=== PATIENT | male | born 1965 | race Caucasian/White ===

== ENCOUNTER 2019-02-12 08:05 | Day surgery (SDC) | payer OTHER ==
--- NOTE | 2019-02-09 09:21 | HP ---
DATE OF SURGERY: 02/12/2019 HISTORY OF PRESENT ILLNESS: The patient is a 53 year-old with some dysphagia, some choking on food upper esophagus. He is interested in upper endoscopy possible dilatation. PAST MEDICAL HISTORY: Hypertension, reflux, ADHD. History of some skin cancer in the past, depression, anxiety. PAST SURGICAL HISTORY: Leg surgery, arm surgery, cholecystectomy in the past. MEDICATIONS: Adderall, Percocet, Aspirin, blood pressure pill. Recently had been on Naprosyn and oxycodone. ALLERGIES: AMOXICILLIN. FAMILY HISTORY: Heart disease, cancer, diabetes. SOCIAL HISTORY: No smoking or alcohol abuse. REVIEW OF SYSTEMS: Twelve systems reviewed per admission assessment. He has hypertension. No chest pain or palpitations other systems negative or noncontributory as above and per preadmission questionnaire. PHYSICAL EXAMINATION: GENERAL: No acute distress. HEENT: Sclerae nonicteric. NECK: No JVD. CHEST: Equal excursion, nonlabored breathing. CVS: Regular rhythm. ABDOMEN: Soft. EXTREMITIES: No significant edema. NEURO: Alert, moving extremities symmetrically. IMPRESSION: Dysphagia. Need EGD possible dilatation. Shown the risk sheet, explained the procedure in detail including but not limited to bleeding or infection, risk of bowel injury or perforation possibly requiring open procedure, risk of missed or nondiagnosis or incomplete exam, possibly if dilatation is accomplished and does improve his swallowing it may need repeated again down the road. He also understands there is a possibility that if dilatation fails to improve his swallowing may need further work up, other studies, upper GI study or other work up. She understands and agrees to the planned procedure and will proceed with EGD with possible biopsy possible dilatation as an outpatient.
[~2019-02-12 08:05] MED LIST: Lactated Ringers 1,000 ML IV ONE; Lactated Ringers 1,000 ML IV SCH
[2019-02-12] MEDS ORDERED: DIPRIVAN 200 MG/20 ML IV ONE (08:06)
[2019-02-12 11:21] VITALS: O2SAT 96
[2019-02-12 11:30] VITALS: BP 148/94; PULSE 63
--- NOTE | 2019-02-13 07:53 | OP ---
SURGERY DATE/TIME: 02/12/2019 1024 PREOPERATIVE DIAGNOSIS: Dysphagia. POSTOPERATIVE DIAGNOSES: 1) Erosive gastritis. 2) Mild duodenitis. 3) Mild distal esophagitis. 4) Distal esophageal spasm. 5) Symptomatic proximal esophageal narrowing and spasm. PROCEDURES: 1) EGD with cold biopsy of the antrum to evaluate for Helicobacter pylori. 2) Cold biopsy of small proximal gastric polyp versus hyperplasia. 3) Cold biopsy distal esophagus to evaluate for distal esophagitis. 4) Distal esophageal balloon dilatation size 19 balloon dilator. 5) Proximal esophageal balloon dilator up to size 20 balloon dilator. SURGEON: Dr. Damien Lynn. ANESTHESIA: MAC. ESTIMATED BLOOD LOSS: Minimal. INDICATIONS: As noted above. Risks and benefits explained in detail and not limited to and consent obtained. DESCRIPTION OF PROCEDURE AND FINDINGS: The patient is taken to the operating room. MAC anesthesia introduced. After official time out and no disagreement with planned procedure, bite block positioned. Video gastroscope easily passed down the esophagus through the oropharynx. It should be noted the proximal esophagus had narrowing and spasm. There was no obvious mass to biopsy. It is where he is having the most symptoms. It was felt this warranted to be dilated. The scope was able to be just passed through this area. The more distal esophagus area of spasm in the distal esophagus right at the gastroesophageal junction where he had some distal esophagitis. There was no evidence of Green's esophagus. No evidence of any masses. It was felt he would benefit from dilating this area as well given the spasm in this area and narrowing. The scope is passed through the patent pylorus to the junction of the second and third portion of the duodenum. Distal duodenum, second and third portion of the duodenum grossly unremarkable. Back in the first portion there was some mild duodenitis. No evidence of any ulcers. Back in the stomach he had some linear erosive gastritis. No signs of anything deep enough to call an ulcer at this point. There were no signs of any large polyps, masses, obstructing lesions or other mucosal lesions. On retroflex of the scope, there was a very small polyp in proximal stomach near the gastroesophageal junction this was removed with cold biopsy forceps. Good hemostasis noted. Whether this was just simple hyperplasia versus fundal gland polyp, good hemostasis noted. The scope is straightened. Gastroesophageal junction noted to be at 40 cm. Z-line was fairly crisp. No signs of Green's. However there was distal mild esophagitis. There was no evidence of any deep erosions. No evidence of any obvious masses. A couple cold biopsies were taken in the area for further evaluation. There is a little bit of spasm of distal esophagus not as tight as the proximal area where he was having the most of his symptoms. The scope was carefully withdrawn up through the esophagus. Again, no signs of any other mucosal lesions just the proximal esophageal narrowing and spasm, distal esophageal spasm. It was felt that both of these areas would benefit from dilation. The scope is passed back down in the stomach and pulled up to the distal esophagus where the balloon catheter had been passed in the stomach. The 20 balloon catheter was then pulled back up to the distal spasm area where it was inflated to size 19 for a couple of minutes and then released. Good hemostasis noted. The scope was then pulled back up and the balloon dilator carefully pulled back up to the proximal esophageal narrowing and spasm and then carefully expanded first to size 18 for 45 seconds, size 19 for 45 seconds, final stage size 20 balloon dilator for 2 minutes. It was then released and balloon catheter withdrawn. The scope much more easily passed through this area that had been dilated down in the stomach. Good hemostasis noted. The scope is slowly and carefully withdrawn. There were no signs of any full thickness issues secondary to dilatation. The scope is withdrawn. The patient tolerated the procedure well. Findings discussed with the family out in the waiting area.
== END 2019-02-12 11:35 | disposition home or self-care (01) ==
LOC: SDC 08:05
PROVIDERS: ATTEND Surgery
DX: K29.70 Gastritis, unspecified, without bleeding (principal); K22.2 Esophageal obstruction; K31.7 Polyp of stomach and duodenum; K29.80 Duodenitis without bleeding; R13.10 Dysphagia, unspecified; K20.9 Esophagitis, unspecified; K22.4 Dyskinesia of esophagus
CPT/HCPCS: 88305; 88312; C1726; J2704

== ENCOUNTER 2020-11-19 05:49 | Day surgery (SDC) | payer OTHER ==
[2020-11-19] MEDS ORDERED: Lactated Ringers 1,000 ML IV SCH (06:30)
[2020-11-19] MEDS ORDERED: DIPRIVAN 200 MG/20 ML IV ONE ×2 (08:05→08:13)
[2020-11-19 09:09] VITALS: O2SAT 99
[2020-11-19 09:19] VITALS: BP 151/93; PULSE 63
--- NOTE | 2020-11-19 13:15 | OP ---
SURGERY DATE/TIME: 11/19/2020 0802 PREOPERATIVE DIAGNOSIS: Unintentional weight loss. POSTOPERATIVE DIAGNOSIS: Normal colon. PROCEDURE: Diagnostic colonoscopy. SURGEON: Toby Cordova M.D. ANESTHESIA: MAC by Wilbert Soto CRNA. ESTIMATED BLOOD LOSS: None. SPECIMENS: None. DESCRIPTION OF PROCEDURE: After informed written consent was obtained, the patient was taken to the endoscopy suite. He was placed in left lateral decubitus position. Anesthesia was titrated to desired level of consciousness. A digital rectal exam showed normal sphincter tone and no internal lesions. The scope was inserted into the rectum and the entire colonic mucosa was traversed. The level of cecum was reached and verified with direct visualization of ileocecal valve. Upon withdrawal careful mucosal inspection revealed prep noted to be fair with some semisolid stool present but mostly clear. No obvious mucosal abnormalities and no lesions were encountered. Prior to withdrawal retroflexion showed no internal lesions. The scope was removed and the patient was transferred to the recovery room in good condition.
== END 2020-11-19 09:25 | disposition home or self-care (01) ==
LOC: SDC 05:49
PROVIDERS: ATTEND Family Medicine
DX: R63.4 Abnormal weight loss (principal)
CPT/HCPCS: J2704

== ENCOUNTER 2023-06-18 12:14 | Emergency (ER) | payer MEDICARE, OTHER ==
--- NOTE | 2023-06-18 12:20 | ERPHSYRPT ---
- History of Present Illness Time Seen by Provider: 06/18/23 12:20 Historian: patient Exam Limitations: no limitations Physician History: 57-year-old male was on his way to the emergency room today in order to be evaluated for right shoulder and elbow pain that he has had since the fall that he sustained on Tuesday when slipping and falling off of a log. In route he began experiencing chest pain and dizziness. He says he has had intermittent chest pain multiple times in the past. Also reports that before he fell on Tuesday that he had some near syncope. He denied any loss of consciousness after the fall. Patient reports having history of hypertension, but is no longer taking meds after his divorce was finalized. He denies smoking tobacco, but does smoke marijuana. He denies any history of coronary artery disease and has never had a cardiac cath. He does take Adderall as needed to help him focus. Any other recreational drug use. Since the fall on Tuesday the elbow and shoulder have become increasingly more painful with the elbow being the worst of the 2. Patient states that in the past he had been told he had a rotator cuff tear as well as a bicep tendon tear in his right shoulder, but he elected not to proceed with surgery. His right elbow has become increasingly more swollen and range of motion has become more difficult. He keeps his arm in a flexed 90 degree position for comfort, but has difficulty extending the arm at this time. Most of his pain is on the medial aspect of the elbow. Timing/Duration: day(s) (4 days of right elbow and shoulder pain s/p fall), sudden (CP started just ELECTROTYPER) Activities at Onset: activity, rest Quality: pressure Location: substernal Chest Pain Radiation: arm Severity of Pain-Max: severe Severity of Pain-Current: severe Modifying Factors: Improves With: nothing Associated Symptoms: palpitations, abdominal pain, shortness of breath Prior Chest Pain/Cardiac Workup: no prior cardiac workup Nitro Today/Relief: 0.4 mg x 1, provided by ED Aspirin Treatment Today: 81 mg x 4, provided by ED Allergies/Adverse Reactions: amoxicillin Allergy (Severe, Verified 06/18/23 12:15) itching, chest pain Home Medications: Dextroamphetamine/Amphetamine [Adderall 10 mg Tablet] 30 mg PO DAILY 02/07/19 [History] Hydrocodone/Acetaminophen [Hydrocodon-Acetaminophn 10-325] 1 each PO UD 11/19/20 [History] Duloxetine HCl 30 mg [Cymbalta 30 MG Capsule] 30 mg PO DAILY 06/18/23 [History] Hx Tetanus, Diphtheria Vaccination/Date Given: Yes Hx Influenza Vaccination/Date Given: No Hx Pneumococcal Vaccination/Date Given: No - Review of Systems Constitutional: No Symptoms Eyes: No Symptoms Ears, Nose, & Throat: No Symptoms Respiratory: Dyspnea on Exertion (WINSLOW) Cardiac: Chest Pain, Palpitations Abdominal/Gastrointestinal: Abdominal Pain (RLQ), No Hematemesis, No Hematochezia, No Melena Genitourinary Symptoms: No Symptoms Musculoskeletal: Fall, Injury, Joint Pain (right shoulder, elbow), Joint Swelling (right elbow) Skin: No Symptoms Neurological: Dizziness, No Focal Weakness, No Seizure, No Sensory Changes, No Speech Changes Psychological: No Symptoms Endocrine: No Symptoms Hematologic/Lymphatic: No Symptoms Immunological/Allergic: No Symptoms All Other Systems: Reviewed and Negative - Past Medical History Pertinent Past Medical History: Yes Neurological History: No Pertinent History ENT History: No Pertinent History Cardiac History: Angina, Hypertension Respiratory History: Sleep Apnea, Other Endocrine Medical History: No Pertinent History Musculoskeletal History: Arthritis, Degenerative Disk Disease GI Medical History: Ulcer, GERD History: No Pertinent History Psycho-Social History: Bipolar, Depression Male Reproductive Disorders: No Pertinent History Other Medical History: sleep apnea - untreated- " I take off the mask". He has inhalers for "esophageal asthma" he has been dilated 3 x and states chokes easily. - Past Surgical History Past Surgical History: Yes Neuro Surgical History: No Pertinent History Cardiac: No Pertinent History Respiratory: No Pertinent History Gastrointestinal: Other, Cholecystectomy Genitourinary: No Pertinent History Musculoskeletal: Other Male Surgical History: No Pertinent History Other Surgical History: right arm and left leg reconstructive surgery after accident. EGD - Social History Smoking Status: Never smoker Exposure to second hand smoke: Yes Drug Use: none Patient Lives Alone: No - Nursing Vital Signs Nursing Vital Signs: Initial Vital Signs Temperature 98.4 F 06/18/23 12:17 Pulse Rate 78 06/18/23 12:17 Respiratory Rate 18 06/18/23 12:17 Blood Pressure 132/92 06/18/23 12:17 O2 Sat by Pulse Oximetry 97 06/18/23 12:17 Pain Scale Pain Intensity 0 - Physical Exam General Appearance: no apparent distress, alert, anxiety Eye Exam: PERRL/EOMI, eyes nml inspection Ears, Nose, Throat Exam: normal ENT inspection Neck Exam: normal inspection, supple, full range of motion Respiratory Exam: normal breath sounds, lungs clear, airway intact, No chest tenderness, No respiratory distress Cardiovascular Exam: regular rate/rhythm, normal heart sounds, capillary refill <2 sec, No edema Gastrointestinal/Abdomen Exam: soft, normal bowel sounds, tenderness (RLQ), guarding, No distention, No rebound Back Exam: normal inspection, normal range of motion Extremity Exam: joint swelling (right elbow), limited range of motion (right shoulder, elbow), tenderness Neurologic Exam: alert, oriented x 3, cooperative, service person II-XII nml as tested, normal mood/affect, nml cerebellar function Skin Exam: normal color, warm, dry, No rash Lymphatic Exam: No adenopathy SpO2 Interpretation: normal O2 Delivery: Room Air - Course Nursing assessment & vital signs reviewed: Yes EKG Interpreted by Me: RATE (72), Sinus Rhythm, NORMAL AXIS, NORMAL INTERVALS, NORMAL QRS, NORMAL ST-T, Other (ventricular premature complex, ND 187) - Radiology Exams Right Elbow X-ray Interpretation: Interpreted by me (coronoid process fracture) Right Shoulder X-ray Interpretation: Interpreted by me (bony bankart fracture) - CT Exams Abdomen/Pelvis CT Interpretation: Negative, Tele-radiologist Report, No appendicitis, Other (hepatomegaly, non obstructing renal stone 2mm) Ordered Tests: Active Orders 24 hr Category Date Time Status Set Off Press Operator STAT Care 06/18/23 12:34 Completed EKG-ER Only STAT Care 06/18/23 12:32 Completed IV Insertion STAT Care 06/18/23 12:32 Completed ABDOMEN AND PELVIS W/0 CONTRAS [CT] Stat Exams 06/18/23 12:35 Completed ELBOW (MINIMUM 3 VIEWS) Stat Exams 06/18/23 12:35 Completed SHOULDER Stat Exams 06/18/23 12:35 Completed CBC W DIFF Stat Lab 06/18/23 12:25 Completed CMP Stat Lab 06/18/23 12:25 Completed PROTIME WITH INR Stat Lab 06/18/23 12:25 Completed PTT Stat Lab 06/18/23 12:25 Completed TROPONIN Q4H Lab 06/18/23 12:25 Completed TROPONIN Q4H Lab 06/18/23 16:00 Completed TSH [TSH, 3RD Generation] Stat Lab 06/18/23 12:25 Completed Urine Triage Profile Stat Lab 06/18/23 12:52 Completed Medication Summary Discontinued Medications Generic Name Dose Route Start Last Admin Trade Name Cal PRN Reason Stop Dose Admin Aspirin 324 mg 06/18/23 12:32 06/18/23 12:36 Aspirin 81 Mg Tab.Chew PO 06/18/23 12:33 324 mg STAT ONE Administration Aspirin Confirm 06/18/23 12:38 Aspirin 81 Mg Tab.Chew Administered 06/18/23 12:39 Dose 324 mg .ROUTE .STdentaZOOM-MED ONE Lab/Rad Data: Laboratory Result Diagrams 06/18/23 12:25 06/18/23 12:25 Laboratory Results 06/18/23 06/18/23 06/18/23 Range/Units 16:00 12:52 12:25 WBC (4.0-10.5) x10^3/uL RBC (4.1-5.6) x10^6/uL Hgb (12.5-18.0) g/dL Hct (42-50) % MCV (78-100) fL MCH (26-32) pg MCHC (32-36) g/dL RDW (11.5-14.0) % Plt Count (150-450) x10^3/uL MPV (7.5-11.0) fL Gran % (36.0-66.0) % Immature Gran % (Auto) (0.00-0.4) % Nucleat RBC Rel Count (0.00-0.1) % Eos # (Auto) (0-0.5) x10^3/uL Immature Gran # (Auto) (0.00-0.03) x10^3u/L Absolute Lymphs (auto) (1.0-4.6) x10^3/uL Absolute Monos (auto) (0.0-1.3) x10^3/uL Absolute Nucleated RBC (0.00-0.01) x10^3u/L Lymphocytes % (24.0-44.0) % Monocytes % (0.0-12.0) % Eosinophils % (0.00-5.0) % Basophils % (0.0-0.4) % Absolute Granulocytes (1.4-6.9) x10^3/uL Basophils # (0-0.4) x10^3/uL PT (9.4-12.5) SECONDS INR (0.8-3.0) APTT (25.1-36.5) SECONDS Sodium (137-145) mmol/L Potassium (3.5-5.1) mmol/L Chloride (98-107) mmol/L Carbon Dioxide (22-30) mmol/L Anion Gap (5-15) MEQ/L BUN (9-20) mg/dL Creatinine (0.66-1.25) mg/dL Estimated GFR ML/MIN Glucose (74-106) mg/dL Calcium (8.4-10.2) mg/dL Total Bilirubin (0.2-1.3) mg/dL AST (17-59) U/L ALT (0-50) U/L Alkaline Phosphatase (38-126) U/L Troponin I < 0.012 (0.000-0.034) ng/mL Serum Total Protein (6.3-8.2) g/dL Albumin (3.5-5.0) g/dL TSH 3rd Generation 0.591 (0.47-4.68) mIU/L Urine Opiates Level NEGATIVE (NEGATIVE) Ur Methadone NEGATIVE (NEGATIVE) Urine Barbiturates NEGATIVE (NEGATIVE) Ur Phencyclidine (PCP) NEGATIVE (NEGATIVE) Urine Amphetamine POSITIVE (NEGATIVE) U Benzodiazepine Level NEGATIVE (NEGATIVE) Urine Cocaine NEGATIVE (NEGATIVE) Urine Marijuana (THC) POSITIVE (NEGATIVE) 06/18/23 06/18/23 06/18/23 Range/Units 12:25 12:25 12:25 WBC (4.0-10.5) x10^3/uL RBC (4.1-5.6) x10^6/uL Hgb (12.5-18.0) g/dL Hct (42-50) % MCV (78-100) fL MCH (26-32) pg MCHC (32-36) g/dL RDW (11.5-14.0) % Plt Count (150-450) x10^3/uL MPV (7.5-11.0) fL Gran % (36.0-66.0) % Immature Gran % (Auto) (0.00-0.4) % Nucleat RBC Rel Count (0.00-0.1) % Eos # (Auto) (0-0.5) x10^3/uL Immature Gran # (Auto) (0.00-0.03) x10^3u/L Absolute Lymphs (auto) (1.0-4.6) x10^3/uL Absolute Monos (auto) (0.0-1.3) x10^3/uL Absolute Nucleated RBC (0.00-0.01) x10^3u/L Lymphocytes % (24.0-44.0) % Monocytes % (0.0-12.0) % Eosinophils % (0.00-5.0) % Basophils % (0.0-0.4) % Absolute Granulocytes (1.4-6.9) x10^3/uL Basophils # (0-0.4) x10^3/uL PT 10.8 (9.4-12.5) SECONDS INR 0.99 (0.8-3.0) APTT 28.0 (25.1-36.5) SECONDS Sodium 139 (137-145) mmol/L Potassium 3.9 (3.5-5.1) mmol/L Chloride 103 (98-107) mmol/L Carbon Dioxide 27 (22-30) mmol/L Anion Gap 13.5 (5-15) MEQ/L BUN 8 L (9-20) mg/dL Creatinine 0.97 (0.66-1.25) mg/dL Estimated GFR > 60.0 ML/MIN Glucose 110 H (74-106) mg/dL Calcium 8.9 (8.4-10.2) mg/dL Total Bilirubin 0.60 (0.2-1.3) mg/dL AST 23 (17-59) U/L ALT 17 (0-50) U/L Alkaline Phosphatase 86 (38-126) U/L Troponin I < 0.012 (0.000-0.034) ng/mL Serum Total Protein 7.1 (6.3-8.2) g/dL Albumin 4.4 (3.5-5.0) g/dL TSH 3rd Generation (0.47-4.68) mIU/L Urine Opiates Level (NEGATIVE) Ur Methadone (NEGATIVE) Urine Barbiturates (NEGATIVE) Ur Phencyclidine (PCP) (NEGATIVE) Urine Amphetamine (NEGATIVE) U Benzodiazepine Level (NEGATIVE) Urine Cocaine (NEGATIVE) Urine Marijuana (THC) (NEGATIVE) 06/18/23 Range/Units 12:25 WBC 6.3 (4.0-10.5) x10^3/uL RBC 4.35 (4.1-5.6) x10^6/uL Hgb 14.3 (12.5-18.0) g/dL Hct 41.1 L (42-50) % MCV 94.5 (78-100) fL MCH 32.9 H (26-32) pg MCHC 34.8 (32-36) g/dL RDW 11.9 (11.5-14.0) % Plt Count 236 (150-450) x10^3/uL MPV 9.5 (7.5-11.0) fL Gran % 49.7 (36.0-66.0) % Immature Gran % (Auto) 0.2 (0.00-0.4) % Nucleat RBC Rel Count 0.0 (0.00-0.1) % Eos # (Auto) 0.15 (0-0.5) x10^3/uL Immature Gran # (Auto) 0.01 (0.00-0.03) x10^3u/L Absolute Lymphs (auto) 2.64 (1.0-4.6) x10^3/uL Absolute Monos (auto) 0.37 (0.0-1.3) x10^3/uL Absolute Nucleated RBC 0.00 (0.00-0.01) x10^3u/L Lymphocytes % 41.6 (24.0-44.0) % Monocytes % 5.8 (0.0-12.0) % Eosinophils % 2.4 (0.00-5.0) % Basophils % 0.3 (0.0-0.4) % Absolute Granulocytes 3.15 (1.4-6.9) x10^3/uL Basophils # 0.02 (0-0.4) x10^3/uL PT (9.4-12.5) SECONDS INR (0.8-3.0) APTT (25.1-36.5) SECONDS Sodium (137-145) mmol/L Potassium (3.5-5.1) mmol/L Chloride (98-107) mmol/L Carbon Dioxide (22-30) mmol/L Anion Gap (5-15) MEQ/L BUN (9-20) mg/dL Creatinine (0.66-1.25) mg/dL Estimated GFR ML/MIN Glucose (74-106) mg/dL Calcium (8.4-10.2) mg/dL Total Bilirubin (0.2-1.3) mg/dL AST (17-59) U/L ALT (0-50) U/L Alkaline Phosphatase (38-126) U/L Troponin I (0.000-0.034) ng/mL Serum Total Protein (6.3-8.2) g/dL Albumin (3.5-5.0) g/dL TSH 3rd Generation (0.47-4.68) mIU/L Urine Opiates Level (NEGATIVE) Ur Methadone (NEGATIVE) Urine Barbiturates (NEGATIVE) Ur Phencyclidine (PCP) (NEGATIVE) Urine Amphetamine (NEGATIVE) U Benzodiazepine Level (NEGATIVE) Urine Cocaine (NEGATIVE) Urine Marijuana (THC) (NEGATIVE) - Progress Progress: improved Air Movement: good Progress Note: Patient's initial EKG and troponin were within normal limits. His repeat troponin over 3 hours after the first was also negative. His chest pain improved during the visit after nitro. Patient was found to have what appeared to be a coronoid process fracture of his right ulna that was nondisplaced. There also appeared to be a possible bony Bankart lesion on the inferior aspect of the glenoid and the right shoulder. Patient was placed in a long-arm posterior splint and advised to follow-up with orthopedics for further evaluation. Strongly encouraged the patient to stop or decrease the amount of Adderall he is using due to his chest pain and near syncope episodes. His blood pressure was labile during his stay so I recommended that he keep a log and follow-up with his PCP to see if any changes are needed. His abdominal CT was largely normal just showing an enlarged liver at 20 mm and a small 2 mm nonobstructing right kidney stone. There was atherosclerotic disease noted on the abdominal CT the patient was advised to focus on improved blood pressure control as well as lipid control. Blood Culture(s) Obtained: No Antibiotics given: No Counseled pt/family regarding: lab results, diagnosis, need for follow-up, rad results Medical Desision Making - Diagnostic Testing Diagnostic test were ordered, analyzed, and reviewed by me: Yes Radiological Interpretation: Interpreted by me - Risk of complications The pt has a mod risk of morbidity or mortality based on: Need for prescription drug management - Departure Departure Disposition: Home Clinical Impression: Fracture of coronoid process of ulna, right, closed, Bankart lesion of right shoulder, Chest pain, Hypertension, Fall, Near syncope Condition: Good Critical Care Time: No Referrals: BAM ARMENDARIZ MD [Primary Care Provider] - Follow up/PCP as directed SOHA BAUER MD [NON-STAFF PHY W/O PRIVILEGES] - Follow Up with PCP/3 days ADRIEN RAMIRES [NON-STAFF PHY W/O PRIVILEGES] - Follow Up with PCP/3 days Instructions: Elbow Fracture, Adult ED
[2023-06-18] MEDS ORDERED: BABY ASPIRIN 81 MG CHEW PO ONE (12:32)
[2023-06-18] MEDS ORDERED: BABY ASPIRIN 81 MG CHEW ONE (12:38)
[2023-06-18 12:39] VITALS: TEMP 98.4
[2023-06-18 12:42] LABS: Absolute Neutrophil Ct (ANC) 3.15 x10^3/uL (1.4-6.9); BASOPHIL % 0.3 % (0.0-0.4); Basophil (Absolute #) 0.02 x10^3/uL (0-0.4); Eosinophil % 2.4 % (0.00-5.0); Eosinophil (Absolute #) 0.15 x10^3/uL (0-0.5); Hematocrit 41.1 % (42-50); Hemoglobin 14.3 g/dL (12.5-18.0); IMMATURE GRAN # 0.01 x10^3u/L (0.00-0.03); IMMATURE GRAN % 0.2 % (0.00-0.4); Lymphocyte (Absolute #) 2.64 x10^3/uL (1.0-4.6); Lymphocytes % 41.6 % (24.0-44.0); Mean Cell Volume 94.5 fL (78-100); Mean Corpuscular Hemoglobin 32.9 pg (26-32); Mean Corpuscular Hgb Concent. 34.8 g/dL (32-36); Mean Platelet Volume 9.5 fL (7.5-11.0); Monocyte (Absolute #) 0.37 x10^3/uL (0.0-1.3); Monocytes % 5.8 % (0.0-12.0); Neutrophil % 49.7 % (36.0-66.0); Platelet Count 236 x10^3/uL (150-450); Red Blood Count 4.35 x10^6/uL (4.1-5.6); Red Cell Distribution Width 11.9 % (11.5-14.0); White Blood Count 6.3 x10^3/uL (4.0-10.5)
[2023-06-18 12:50] LABS: ALBUMIN 4.4 g/dL (3.5-5.0); ALKALINE PHOSPHATASE 86 U/L (38-126); ANION GAP 13.5 MEQ/L (5-15); BLOOD UREA NITROGEN 8 mg/dL (9-20); CHLORIDE 103 mmol/L (98-107); Calcium 8.9 mg/dL (8.4-10.2); Carbon Dioxide 27 mmol/L (22-30); Creatinine 1 0.97 mg/dL (0.66-1.25); EST GLOMERULAR FILTRATION RATE > 60.0 ML/MIN; Glucose 110 mg/dL (74-106); Potassium 3.9 mmol/L (3.5-5.1); SGOT/AST 23 U/L (17-59); SGPT/ALT 17 U/L (0-50); SODIUM 139 mmol/L (137-145); Total Protein 7.1 g/dL (6.3-8.2)
[2023-06-18 12:51] LABS: INR 0.99 (0.8-3.0); PROTIME 10.8 SECONDS (9.4-12.5)
[2023-06-18 13:13] LABS: Amphetamine,Urine POSITIVE (NEGATIVE); Barbiturate,Urine NEGATIVE (NEGATIVE); Benzodiazepine,Urine NEGATIVE (NEGATIVE); Cocaine,Urine NEGATIVE (NEGATIVE); Methadone,Urine NEGATIVE (NEGATIVE); Opiate,Urine NEGATIVE (NEGATIVE); PCP,Urine NEGATIVE (NEGATIVE); THC,Urine POSITIVE (NEGATIVE)
[2023-06-18 13:53] VITALS: O2SAT 98
--- NOTE | 2023-06-18 15:09 | XRAY ---
CLINICAL HISTORY:abd pain COMPARISON:None TECHNIQUE:A contiguous, multislice, nonenhanced CT scan of the abdomen and pelvis was performed in the axial plane with multiplanar reconstructions. FINDINGS: Enlarged liver measuring about 20 cm in craniocaudal axis showing homogeneous attenuation with no obvious focal mass lesion within the limitations of non-contrast study. The gallbladder is surgically removed as evidenced by surgical clips in the gallbladder bed. Pancreas and spleen appear unremarkable. No adrenal mass. Both kidneys appear normal in size, shows normal contour and attenuation. Small calculi in the right kidney, the largest measuring about 2 mm at the upper pole. No ascites. No para-aortic lymphadenopathy. Atherosclerotic calcification of the abdominal aorta and iliac vessels. Imaged bowel structures appear unremarkable. No bowel dilatation. The urinary bladder is partially distended, appear free from intraluminal stones, mass or diverticular outpouching. Normal-sized prostate showing calcific foci within it. Bilateral benign looking nonspecific inguinal lymph nodes were seen. Visualized sections of lower chest show calcific density in the left lingular segment representing calcified granuloma/hamartoma. Irregular pleural thickening in both lung bases. IMPRESSION: 1. Nonobstructing small right renal calculi. 2. Hepatomegaly. 3. Rest of the findings as detailed above. Electronically Signed by: Blair Oneil MD. (06/18/2023 14:08:22 PLANT ATTENDANT)
[2023-06-18 17:30] VITALS: BP 144/83; PULSE 53; RESP 14
--- NOTE | 2023-06-18 20:17 | XRAY ---
Indication: Pain following fall. Comparison: None 3 view right shoulder negative for acute fracture/dislocation. Mild glenohumeral/acromioclavicular degenerative arthropathy. 4 mm heterotopic ossification inferior glenohumeral joint either degenerative versus old injury. Incidental mild degenerative changes throughout visualized spine.
--- NOTE | 2023-06-18 20:17 | XRAY ---
Indication: Pain following fall. Comparison: None 3 view right elbow negative acute fracture/dislocation. Minimal displacement posterior fat pad, possible occult fracture. Tiny spurring medial/lateral epicondyles and olecranon process. 2 tiny heterotopic ossifications adjacent to radial tuberosity either degenerative versus old injury.
== END 2023-06-18 18:01 | disposition home or self-care (01) ==
LOC: ED 12:14
DX: S52.041A Displaced fracture of coronoid process of right ulna, initial encounter for closed fracture (principal); S43.431A Superior glenoid labrum lesion of right shoulder, initial encounter; W19.XXXA Unspecified fall, initial encounter; R07.9 Chest pain, unspecified; I10 Essential (primary) hypertension; R55 Syncope and collapse; Z79.899 Other long term (current) drug therapy
CPT/HCPCS: 36000; 36415; 73030; 73080; 74176; 80053; 80307; 84443; 84484; 85025; 85610; 85730; 93005; 93041; 99284; A9270-GY

== ENCOUNTER 2024-05-12 11:05 | Observation (INO) | payer MEDICARE ==
--- NOTE | 2024-05-12 11:21 | ERPHSYRPT ---
- History of Present Illness Time Seen by Provider: 05/12/24 11:21 Source: patient Exam Limitations: no limitations Physician History: The patient presented with a worsening skin condition, initially diagnosed as poison rpaveen or contact dermatitis, approximately a week and a half prior at [facility]. The condition initially improved, but then deteriorated signi ficantly. The patient reported severe pain and inability to straighten the affected arm, suggesting significant inflammation and possible infection. The patient noted the onset of purulent drainage approximately two days prior to a recent appointment with Dr. Armendariz, around the 15th or 16th of the month. The patient reported some relief after the area was cleaned and some of the purulent material was expressed. The patient has a known allergy to Amoxicillin. Timing/Duration: week(s) (1), worse Quality: painful Severity: severe Location: extremities (right elbow) Possible Causes: poison praveen Modifying Factors: Worsens With: prednisone Associated Symptoms: change in skin texture, edema, No difficulty breathing, No fever Allergies/Adverse Reactions: amoxicillin Allergy (Severe, Verified 05/12/24 11:10) itching, chest pain Home Medications: Dextroamphetamine/Amphetamine [Adderall 10 mg Tablet] 30 mg PO DAILY 02/07/19 [History] Duloxetine HCl 30 mg [Cymbalta 30 MG Capsule] 30 mg PO DAILY 06/18/23 [History] Lisinopril/Hydrochlorothiazide [Lisinopril-Hctz 20-25 mg Tab] 1 tab PO DAILY 05/12/24 [History] Oxycodone / APAP 10/325 mg [Oxycodone-Acetaminophen 10-325] 1 tab PO Q4- 6HPRN PRN 05/12/24 [History] Pantoprazole 40 mg [Protonix 40 mg IV] 40 mg PO BID 05/12/24 [History] Sumatriptan Succinate [Imitrex] 100 mg PO DAILY 05/12/24 [History] Hx Tetanus, Diphtheria Vaccination/Date Given: Yes Hx Influenza Vaccination/Date Given: No Hx Pneumococcal Vaccination/Date Given: No - Review of Systems All Other Systems: Reviewed and Negative - Past Medical History Pertinent Past Medical History: Yes Neurological History: No Pertinent History ENT History: No Pertinent History Cardiac History: Angina, Hypertension Respiratory History: Sleep Apnea, Other Endocrine Medical History: No Pertinent History Musculoskeletal History: Arthritis, Degenerative Disk Disease GI Medical History: Ulcer, GERD History: No Pertinent History Psycho-Social History: Bipolar, Depression Male Reproductive Disorders: No Pertinent History Other Medical History: sleep apnea - untreated- " I take off the mask". He has inhalers for "esophageal asthma" he has been dilated 3 x and states chokes easily. - Past Surgical History Past Surgical History: Yes Neuro Surgical History: No Pertinent History Cardiac: No Pertinent History Respiratory: No Pertinent History Gastrointestinal: Other, Cholecystectomy Genitourinary: No Pertinent History Musculoskeletal: Other Male Surgical History: No Pertinent History Other Surgical History: right arm and left leg reconstructive surgery after accident. EGD - Social History Smoking Status: Never smoker Exposure to second hand smoke: Yes Drug Use: none Patient Lives Alone: No - Nursing Vital Signs Nursing Vital Signs: Initial Vital Signs Temperature 97.3 F 05/12/24 11:10 Pulse Rate 65 05/12/24 11:10 Respiratory Rate 17 05/12/24 11:10 Blood Pressure 183/118 05/12/24 11:10 O2 Sat by Pulse Oximetry 100 05/12/24 11:10 Pain Scale Pain Intensity 10 - Physical Exam General Appearance: mild distress Extremity Exam: other SpO2 Interpretation: normal O2 Delivery: Room Air Comments: Right elbow swollen, erythematous with purulent drainage over the olecranon. Range of motion limited by pain. Ultrasound evaluation shows no pocket of drainable fluid and only large amount of soft tissue edema. - Course Nursing assessment & vital signs reviewed: Yes Ordered Tests: Active Orders 24 hr Category Date Time Status IV Insertion STAT Care 05/12/24 11:31 Active UPPER EXTREMITY W CONTRAST [CT] Stat Exams 05/12/24 11:35 Ordered BLOOD CULTURE Stat Lab 05/12/24 11:54 Received CBC W DIFF Stat Lab 05/12/24 11:46 Results CMP Stat Lab 05/12/24 11:46 Received ESR [Erythrocyte Sedimentation Rate] Stat Lab 05/12/24 11:46 Completed Lactic Acid Stat Lab 05/12/24 11:43 Completed Manual Differential NC Stat Lab 05/12/24 11:46 Results PROCALCITONIN Stat Lab 05/12/24 11:46 Received Pathologist Review Stat Lab 05/12/24 11:46 Results Medication Summary Generic Name Dose Route Start Last Admin Trade Name Freq PRN Reason Stop Dose Admin Sodium Chloride 1,000 mls @ 999 mls/hr 05/12/24 11:32 05/12/24 11:45 Sodium Chloride 0.9% 1000 Ml IV 05/12/24 12:32 999 mls/hr .Q1H1M STA Administration Vancomycin HCl 2 gm in 400 mls @ 133.333 mls/hr 05/12/24 11:32 05/12/24 11:57 Vancomycin 2 Gram/400 Ml Bag IV 05/12/24 14:31 133.333 ml/hr STAT ONE 133.33 mls/hr Administration Discontinued Medications Generic Name Dose Route Start Last Admin Trade Name Freq PRN Reason Stop Dose Admin Ceftriaxone Sodium 2 gm in 100 mls @ 200 mls/hr 05/12/24 11:32 05/12/24 11:51 Rocephin 2 Gm/100 Ml Nacl IV 05/12/24 12:01 200 ml/hr STAT ONE 200 mls/hr Administration Sodium Chloride Confirm 05/12/24 11:36 Sodium Chloride 0.9% 1000 Ml Administered 05/12/24 11:37 Dose 1,000 mls @ ud .ROUTE .STK-MED ONE Ceftriaxone Sodium Confirm 05/12/24 11:47 Rocephin 2 Gm/100 Ml Nacl Administered 05/12/24 11:48 Dose 2 gm in 100 mls @ ud IV .STK-MED ONE Vancomycin HCl Confirm 05/12/24 11:54 Vancomycin 2 Gram/400 Ml Bag Administered 05/12/24 11:55 Dose 2 gm in 400 mls @ ud IV .STK-MED ONE Ketorolac Tromethamine 30 mg 05/12/24 12:01 05/12/24 12:05 Ketorolac Tromethamine 30 Mg/Ml Inj IV 05/12/24 12:02 30 mg STAT ONE Administration Ketorolac Tromethamine Confirm 05/12/24 12:03 Ketorolac Tromethamine 30 Mg/Ml Inj Administered 05/12/24 12:04 Dose 30 mg .ROUTE .STK-MED ONE Morphine Sulfate 2 mg 05/12/24 11:34 05/12/24 11:45 Morphine Sulfate 2 Mg/Ml Inj IV 05/12/24 11:35 2 mg STAT ONE Administration Morphine Sulfate Confirm 05/12/24 11:36 Morphine Sulfate 2 Mg/Ml Inj Administered 05/12/24 11:37 Dose 2 mg .ROUTE .STK-MED ONE Ondansetron HCl 4 mg 05/12/24 11:35 05/12/24 11:45 Ondansetron Hcl 4 Mg/2 Ml Vial IV 05/12/24 11:36 4 mg STAT ONE Administration Ondansetron HCl Confirm 05/12/24 11:35 Ondansetron Hcl 4 Mg/2 Ml Vial Administered 05/12/24 11:36 Dose 4 mg .ROUTE .STK-MED ONE Lab/Rad Data: Laboratory Result Diagrams 05/12/24 11:46 Laboratory Results 05/12/24 05/12/24 05/12/24 Range/Units 11:46 11:46 11:43 WBC 27.8 H* (4.23-9.07) x10^3/uL RBC 4.68 (4.63-6.08) x10^6/uL Hgb 15.1 (13.7-17.5) g/dL Hct 45.1 (40.1-51.0) % MCV 96.4 H (79.0-92.2) fL MCH 32.3 H (25.7-32.2) pg MCHC 33.5 (32.3-36.5) g/dL RDW 13.2 (11.6-14.4) % Plt Count 203 (163-337) x10^3/uL MPV 9.7 (9.4-12.4) fL Smear Path Review Pending ESR 8 (0-15) mm/hr Lactic Acid 1.4 (0.4-2.0) - Progress Progress: unchanged Discussed with Dr.: Other (Rolando) Will see patient in: hospital (observation) Counseled pt/family regarding: lab results, diagnosis, need for follow-up, rad results Medical Desision Making - Discussion of managment Care discussed with:: hospitalist Reviewed:: Test results, Need for additional workup Agreed on:: Treatment plan, place in obs Will see patient: In office - Diagnostic Testing Diagnostic test were ordered, analyzed, and reviewed by me: Yes Radiological Interpretation: Interpreted by me, Reviewed by me, Teleradiologist Report - Risk of complications The pt has a mod risk of morbidity or mortality based on: Need for prescription drug management The pt has a high risk of morbidity or mortality based on: Decision regarding hospitilization or escalation of hosp level of care - Departure Departure Disposition: Observation Clinical Impression: Cellulitis of right elbow, Wound cellulitis, Right elbow pain Condition: Stable Critical Care Time: No Referrals: BAM ARMENDARIZ MD [Primary Care Provider] - Follow up/PCP as directed Instructions: Cellulitis (Skin Infection), Adult ED
[2024-05-12] MEDS ORDERED: Zofran 4 MG/2 ML VIAL ONE (11:35)
[2024-05-12] MEDS ORDERED: MORPHINE SULFATE 2 MG INJ ONE (11:36)
[2024-05-12] MEDS ORDERED: Sodium Chloride 0.9% 1000 ML 1,000 ML ONE (11:36)
[2024-05-12] MEDS: Zofran 4 MG/2 ML VIAL IV ONE (11:45)
[2024-05-12] MEDS: MORPHINE SULFATE 2 MG INJ IV ONE (11:45)
[2024-05-12] MEDS: Sodium Chloride 0.9% 1000 ML 1,000 ML IV STA (11:45)
[2024-05-12] MEDS ORDERED: ROCEPHIN 2 GM/100 ML NACL 2 GM/100 ML IVPB IV ONE (11:47)
[2024-05-12] MEDS: ROCEPHIN 2 GM/100 ML NACL 2 GM/100 ML IVPB IV ONE (11:51)
[2024-05-12] MEDS ORDERED: VANCOMYCIN 2 GRAM/400 ML BAG 2 GM/400 ML PIGGYBACK IV ONE (11:54)
[2024-05-12] MEDS: VANCOMYCIN 2 GRAM/400 ML BAG 2 GM/400 ML PIGGYBACK IV ONE (11:57)
[2024-05-12 11:59] LABS: Hematocrit 45.1 % (40.1-51.0); Hemoglobin 15.1 g/dL (13.7-17.5); Mean Cell Volume 96.4 fL (79.0-92.2); Mean Corpuscular Hemoglobin 32.3 pg (25.7-32.2); Mean Corpuscular Hgb Concent. 33.5 g/dL (32.3-36.5); Mean Platelet Volume 9.7 fL (9.4-12.4); Platelet Count 203 x10^3/uL (163-337); Red Blood Count 4.68 x10^6/uL (4.63-6.08); Red Cell Distribution Width 13.2 % (11.6-14.4)
[2024-05-12 12:02] LABS: White Blood Count 27.8 x10^3/uL (4.23-9.07)
[2024-05-12] MEDS ORDERED: TORAdol 30 mg Injection ONE (12:03)
[2024-05-12] MEDS: TORAdol 30 mg Injection IV ONE (12:05)
[2024-05-12 12:28] LABS: ALBUMIN 4.4 g/dL (3.5-5.0); ANION GAP 12.9 MEQ/L (5-15); BILIRUBIN,TOTAL 0.8 mg/dL (0.2-1.3); Calcium 8.8 mg/dL (8.4-10.2); Creatinine 1 0.97 mg/dL (0.66-1.25); EST GLOMERULAR FILTRATION RATE 90.5 ML/MIN; PROCALCITONIN 0.057 ng/mL (0.030-0.080); Potassium 3.9 mmol/L (3.5-5.1); Total Protein 7.4 g/dL (6.3-8.2)
--- NOTE | 2024-05-12 13:17 | PCM.HP ---
History of Present Illness - Chief Complaint Chief Complaint: cellultis Date: 05/12/24 History of Present Illness: Mr.GOODMAN BUSCH is a 58 year old male with PMHX of HTN, migraines, angina, bipolar, depression, sleep apnea ( non-compliant), GERD, DJD, OA, and ADD. The patient presented to the ER today with a worsening skin condition, initially diagnosed as poison praveen or contact dermatitis, approximately a week and a half prior at [facility]. The condition initially improved, but then deteriorated significantly. The patient reported severe pain and inability to straighten the affected arm, suggesting significant inflammation and possible infection. The patient noted the onset of purulent drainage approximately two days prior to a recent appointment with Dr. Cordova, around the 15th or 16th of the month. The patient reported some relief after the area was cleaned and some of the purulent material was expressed. Culture completed in ER. WBC 27.8. He was started on IV antibiotics and pain meds in the ER- will continue. CT RUE pending. Ortho consulted. he denies CP, SOB, abd. pain , N/V/D. - Review of Systems Constitutional: No Fever, No Chills Eyes: No Symptoms Ears, Nose, & Throat: No Symptoms Respiratory: No Cough, No Short Of Breath Cardiac: No Chest Pain, No Edema, No Syncope Abdominal/Gastrointestinal: No Abdominal Pain, No Nausea, No Vomiting, No Diarrhea Genitourinary Symptoms: No Dysuria Musculoskeletal: No Back Pain, No Neck Pain Skin: Cellulitis, Skin Lesions (BLLE, BUE, Right elbow open wounds with redness and pain, left elbow pain and redness), No Rash Neurological: No Dizziness, No Focal Weakness, No Sensory Changes Psychological: No Symptoms Endocrine: No Symptoms Hematologic/Lymphatic: No Symptoms Immunological/Allergic: No Symptoms Medications & Allergies Home Medications: Home Medication List Dextroamphetamine/Amphetamine [Adderall 10 mg Tablet] 30 mg PO DAILY 02/07/19 [History Confirmed 05/12/24] Duloxetine HCl 30 mg [Cymbalta 30 MG Capsule] 30 mg PO DAILY 06/18/23 [History Confirmed 05/12/24] Oxycodone / APAP 10/325 mg [Oxycodone-Acetaminophen 10-325] 1 tab PO Q4- 6HPRN PRN 05/12/24 [History Confirmed 05/12/24] PANTOPRAZOLE 40 mg Tablet [Protonix 40MG Tablet] 40 mg PO BID 05/12/24 [History Confirmed 05/12/24] Allergies/Adverse Reactions: Allergies Allergy/AdvReac Type Severity Reaction Status Date / Time amoxicillin Allergy Severe itching, Verified 05/12/24 13:05 chest pain - Past Medical History Past Medical History: Yes Neurological History: No Pertinent History ENT History: No Pertinent History Cardiac History: Angina, Hypertension Respiratory History: Sleep Apnea, Other Endocrine Medical History: No Pertinent History Musculoskelatal History: Arthritis, Degenerative Disk Disease GI Medical History: Ulcer, GERD History: No Pertinent History Pyscho-Social History: Bipolar, Depression Male Reproductive Disorders: No Pertinent History Comment: sleep apnea - untreated- " I take off the mask". He has inhalers for "esophageal asthma" he has been dilated 3 x and states chokes easily. - Past Surgical History Past Surgical History: Yes Neuro Surgical History: No Pertinent History Cardiac History: No Pertinent History Respiratory Surgery: No Pertinent History GI Surgical History: Other, Cholecystectomy Genitourinary Surgical Hx: No Pertinent History Musculskeletal Surgical Hx: Other Male Surgical History: No Pertinent History Other Surgical History: right arm and left leg reconstructive surgery after accident. EGD - Social History Smoking Status: Never smoker Exposure to second hand smoke: Yes Alcohol: None Drug Use: none - Social Determinants of Health Will the patient participate in the screening: Declined to provide - Physical Exam Vital Signs: Vital Signs - 24 hr Temp Pulse Resp BP Pulse Ox 05/12/24 12:58 98.6 F 73 16 166/80 97 05/12/24 11:10 97.3 F 65 17 183/118 100 General Appearance: no apparent distress, alert Neurologic Exam: alert, oriented x 3, cooperative, normal mood/affect, nml cerebellar function, nml station & gait, sensation nml, No motor deficits Eye Exam: PERRL/EOMI, eyes nml inspection Ears, Nose, Throat Exam: normal ENT inspection, TMs normal, pharynx normal, moist mucous membranes Neck Exam: normal inspection, non-tender, supple, full range of motion Respiratory Exam: normal breath sounds, lungs clear, No respiratory distress Cardiovascular Exam: regular rate/rhythm, normal heart sounds, normal peripheral pulses Gastrointestinal/Abdomen Exam: soft, normal bowel sounds, No tenderness, No mass Back Exam: normal inspection, normal range of motion, No CVA tenderness, No vertebral tenderness Extremity Exam: normal inspection, normal range of motion, pelvis stable, inflammation, joint swelling (BL elbows R>L), limited range of motion (Right elbow) Skin Exam: normal color, warm, dry, other (Multiple lesions of BLLE and BLLE in various stages of healing from poision praveen. Right elbow open wounds with edema, erythema and purulent draiange, left elbow pain and redness.), No rash Lymphatic Exam: No adenopathy Results - Labs Lab/Micro Results: Lab Results-Last 24 Hours 05/12/24 05/12/24 05/12/24 Range/Units 11:43 11:46 11:46 WBC 27.8 H* (4.23-9.07) x10^3/uL RBC 4.68 (4.63-6.08) x10^6/uL Hgb 15.1 (13.7-17.5) g/dL Hct 45.1 (40.1-51.0) % MCV 96.4 H (79.0-92.2) fL MCH 32.3 H (25.7-32.2) pg MCHC 33.5 (32.3-36.5) g/dL RDW 13.2 (11.6-14.4) % Plt Count 203 (163-337) x10^3/uL MPV 9.7 (9.4-12.4) fL Smear Path Review Pending ESR (0-15) mm/hr Sodium 137 (135-145) mmol/L Potassium 3.9 (3.5-5.1) mmol/L Chloride 98 (98-107) mmol/L Carbon Dioxide 31 H (22-30) mmol/L Anion Gap 12.9 (5-15) MEQ/L BUN 16 (9-20) mg/dL Creatinine 0.97 (0.66-1.25) mg/dL Estimated GFR 90.5 ML/MIN Glucose 98 (74-106) mg/dL Lactic Acid 1.4 (0.4-2.0) Calcium 8.8 (8.4-10.2) mg/dL Total Bilirubin 0.80 (0.2-1.3) mg/dL AST 17 (17-59) U/L ALT 21 (0-50) U/L Alkaline Phosphatase 100 (38-126) U/L Serum Total Protein 7.4 (6.3-8.2) g/dL Albumin 4.4 (3.5-5.0) g/dL Procalcitonin 0.057 (0.030-0.080) ng/mL 05/12/24 Range/Units 11:46 WBC (4.23-9.07) x10^3/uL RBC (4.63-6.08) x10^6/uL Hgb (13.7-17.5) g/dL Hct (40.1-51.0) % MCV (79.0-92.2) fL MCH (25.7-32.2) pg MCHC (32.3-36.5) g/dL RDW (11.6-14.4) % Plt Count (163-337) x10^3/uL MPV (9.4-12.4) fL Smear Path Review ESR 8 (0-15) mm/hr Sodium (135-145) mmol/L Potassium (3.5-5.1) mmol/L Chloride (98-107) mmol/L Carbon Dioxide (22-30) mmol/L Anion Gap (5-15) MEQ/L BUN (9-20) mg/dL Creatinine (0.66-1.25) mg/dL Estimated GFR ML/MIN Glucose (74-106) mg/dL Lactic Acid (0.4-2.0) Calcium (8.4-10.2) mg/dL Total Bilirubin (0.2-1.3) mg/dL AST (17-59) U/L ALT (0-50) U/L Alkaline Phosphatase (38-126) U/L Serum Total Protein (6.3-8.2) g/dL Albumin (3.5-5.0) g/dL Procalcitonin (0.030-0.080) ng/mL - Radiology Impressions Radiology Exams & Impressions: Radiology Procedures Category Date Time Status UPPER EXTREMITY W CONTRAST [CT] Stat Exams 05/12/24 11:35 Taken Assessment/Plan (1) Cellulitis of right elbow Current Visit: Yes Status: Acute Assessment & Plan: - IV antibiotics, probiotocs - Upper extremity CT pending - elevate arm Code(s): L03.113 - CELLULITIS OF RIGHT UPPER LIMB (2) Right elbow pain Current Visit: Yes Status: Acute Assessment & Plan: - CT pending - Narcotic pain control Code(s): M25.521 - PAIN IN RIGHT ELBOW (3) Wound cellulitis Current Visit: Yes Status: Acute Assessment & Plan: - IV antibiotics - Upper extremity CT pending Code(s): L03.90 - CELLULITIS, UNSPECIFIED (4) GERD (gastroesophageal reflux disease) Current Visit: Yes Status: Acute Assessment & Plan: - Continue protonix Code(s): K21.9 - GASTRO-ESOPHAGEAL REFLUX DISEASE WITHOUT ESOPHAGITIS (5) Obesity (BMI 30.0-34.9) Current Visit: Yes Status: Chronic Assessment & Plan: - advised diet and exercise control Code(s): E66.9 - OBESITY, UNSPECIFIED (6) Bipolar depression Current Visit: Yes Status: Chronic Assessment & Plan: - Continue Cymbalta Code(s): F31.9 - BIPOLAR DISORDER, UNSPECIFIED (7) ADD (attention deficit disorder) Current Visit: Yes Status: Chronic Assessment & Plan: - Continue Adderall Code(s): F98.8 - OTH BEHAV/EMOTN DISORD W ONSET USLY OCCUR IN CHLDHD AND ADOL (8) HTN (hypertension) Current Visit: Yes Status: Acute Assessment & Plan: - IVF bolus gave in ER - No known hx - monitor - tele VTE: SCD's PPI: protonix Next of KIN: Miranda Sanchez [phone] D/C plan: 2-3 days Code status: Full Code(s): I10 - ESSENTIAL (PRIMARY) HYPERTENSION
--- NOTE | 2024-05-12 13:44 | XRAY ---
CLINICAL HISTORY: pain COMPARISON: None. TECHNIQUE: Contiguous axial CT images of the upper limb left elbow region were obtained with 100 cc isovue-370 intravenous contrast.100cc of Isovue 370 given. Sagittal and coronal multiplanar reformats were acquired. One of the following dose reduction techniques was utilized for this exam.Automated exposure control, adjustment of the mA and/or kV according to patient size, and use of iterative reconstruction. FINDINGS: Evidence of distal biceps tendon repair noted with radial tuberosity region irregularity and hyperdensities in the bicep brachii distal tendon. Subcutaneous soft tissue edema noted at posterior aspect of elbow articulation and is also involving visualized arm and distally in the proximal forearm. Mild reduction of elbow joint space with moderate marginal osteophytes noted. Mild elbow joint effusion noted. Multiple calcification within the soft tissue around the lateral and medial epicondyles, olecranon representing calcific tendinopathy or enthesopathy. Normal osseous alignment is seen. No definite acute fracture or dislocation is noted. IMPRESSION: 1. Evidence of distal biceps tendon repair. 2. Subcutaneous soft tissue edema noted at posterior aspect of elbow articulation and is also involving visualized arm and distally in the proximal forearm. 3. Moderate osteoarthritic changes noted at elbow articulation. 4. Multiple calcification within the soft tissue around the lateral and medial epicondyles, olecranon representing calcific tendinopathy or enthesopathy. 5. Mild elbow joint effusion noted. 6. MRI elbow joint is suggested for further evaluation if clinically indicated. Electronically Signed by: Blair Oneil MD. (05/12/2024 13:41:15 EDT)
[2024-05-12 13:49] LABS: Eosinophil 1 % (0.00-3.0); Lymphocytes 13 % (24-44); Monocyte 2 % (0.0-12.0); Neutrophils 84 % (1.78-5.38); Platelet Estimate NORMAL (NORMAL); Total Cells Counted 100; Toxic Granulation 1+
[2024-05-12] MEDS: PHARMACY DOSING REQUIRED: VANCOMYCIN IV STA (13:58)
[2024-05-12] MEDS: OXYCODONE-ACETAMINOPHEN 10-325 PO PRN (14:21)
[2024-05-12] MEDS: Acidophilus TABLET PO SCH (14:21)
[2024-05-12] MEDS ORDERED: VANCOMYCIN 1 GRAM/200 ML BAG 1 GM/200 ML PIGGYBACK IV SCH (15:00)
[2024-05-12] MEDS ORDERED: Cleocin Phosphate IV 600 MG/4 ML IV SCH (15:00)
[2024-05-12] MEDS ORDERED: MEDICATION INTERVENTION MC SCH (15:00)
[2024-05-12] MEDS ORDERED: CEFAZOLIN 2 GM/100 ML NaCl IV SCH (15:00)
[2024-05-12] MEDS: CLINDAMYCIN-D5W 600 MG/50 ML*** 600 MG/50 ML BAG IV SCH (15:09)
[2024-05-12] MEDS: Ativan 1 MG PO ONE (21:00)
[2024-05-12] MEDS: BACIGUENT PACKET TP SCH (21:36)
[2024-05-12] MEDS: Protonix 40MG Tablet PO SCH (21:48)
[2024-05-12] MEDS: VANCOMYCIN 1 GRAM/200 ML BAG 1 GM/200 ML PIGGYBACK IV SCH (21:49)
[2024-05-12] MEDS: MELATONIN PO PRN (22:09)
[2024-05-13 06:10] LABS: Hematocrit 40.9 % (40.1-51.0); Hemoglobin 13.8 g/dL (13.7-17.5); Mean Corpuscular Hemoglobin 32.4 pg (25.7-32.2); Mean Corpuscular Hgb Concent. 33.7 g/dL (32.3-36.5); Mean Platelet Volume 9.9 fL (9.4-12.4); Platelet Count 177 x10^3/uL (163-337); Red Blood Count 4.26 x10^6/uL (4.63-6.08); Red Cell Distribution Width 13.2 % (11.6-14.4)
[2024-05-13 06:18] LABS: White Blood Count 29.7 x10^3/uL (4.23-9.07)
[2024-05-13 06:29] LABS: ALBUMIN 3.5 g/dL (3.5-5.0); ANION GAP 9.2 MEQ/L (5-15); BILIRUBIN,TOTAL 0.9 mg/dL (0.2-1.3); Calcium 8.4 mg/dL (8.4-10.2); Creatinine 1 0.85 mg/dL (0.66-1.25); EST GLOMERULAR FILTRATION RATE 100.7 ML/MIN; Potassium 4.4 mmol/L (3.5-5.1); Total Protein 6.2 g/dL (6.3-8.2)
[2024-05-13] MEDS: Cymbalta 30 MG Capsule PO SCH (09:01)
[2024-05-13] MEDS ORDERED: NON-FORMULARY ITEM (Dextroamphetamine/Amphetamine [Adderall 10 Mg Tablet] 10 MG Tablet) PO SCH (10:00)
--- NOTE | 2024-05-13 12:29 | PCM.NOTE ---
Date and Time: 05/13/24 1221 Subjective Assessment: Ortho Progress Note HD 2 S--f/u right arm gaitan and swelling, pt states pain slightly imprved, able to move his elbow better. Pt has been voicing concerns about appointments tomorrow (Tuesday), that he feels he cannot miss, a court date at 11am and an appt with his pain mangement doctor at 2pm O--aw, al, NAD Tmax 99.9 right arm still red and tender, zone of redness slightly expanded, although diminshed tenderness at olec area, and no palpable pocket of free fluid in bursa. WBC slightly higher than yest A/cellulitis left UE, no cultures available for this, slight clinical imporvement P/cont iv abx, reassess in am MD marek Objective Exam Wound Assessment: Skin/Wound Assessment Wound/Incision Assessment Start: 05/12/24 12:58 Text: Status: Active Freq: Q6H Protocol: Document 05/13/24 08:00 [facility] (Rec: 05/13/24 09:39 [facility] [id number]) Wound/Incision Assessment Right Elbow Wound Assessment Shift Assessment Wound Type Cellulitis Wound Stage Non Pressure Wound Drainage Amount Minimal Drainage Description Yellow Drainage Odor None/Absent General Appearance Open to air,Draining Surrounding Tissue Bright Red,Edematous Comment Reddness outside of margins, this nurse outlined new margins. Wound Photo Photo Taken No Objective Data Vital Signs: Vital Signs - 24 hr Temp Pulse Resp BP Pulse Ox 05/13/24 11:50 98.0 F 66 16 148/70 96 05/13/24 07:22 98.6 F 73 16 172/84 97 05/13/24 04:00 99.9 F 73 20 155/73 95 05/13/24 00:00 99.6 F 77 18 123/67 96 05/12/24 19:52 99.2 F 79 19 134/63 94 L 05/12/24 15:33 98.9 F 77 16 148/68 96 05/12/24 13:13 98.6 F 73 16 166/80 97 05/12/24 12:58 98.6 F 73 16 166/80 97 Pain Assessment - Last Documented Pain Intensity 5 Pain Scale Used 0-10 Pain Scale Intake and Output: Intake & Output 05/11/24 05/12/24 05/13/2405/14/24 11:59 11:59 11:59 11:59 Intake Total 1630 Output Total 600 Balance 1030 Weight 107.048 kg 111.8 kg Lab Results: Lab Results-Last 24 Hours 05/12/24 05/12/24 05/13/24 Range/Units 11:46 11:46 05:33 WBC 29.7 H* (4.23-9.07) x10^3/uL RBC 4.26 L (4.63-6.08) x10^6/uL Hgb 13.8 (13.7-17.5) g/dL Hct 40.9 (40.1-51.0) % MCV 96.0 H (79.0-92.2) fL MCH 32.4 H (25.7-32.2) pg MCHC 33.7 (32.3-36.5) g/dL RDW 13.2 (11.6-14.4) % Plt Count 177 (163-337) x10^3/uL MPV 9.9 (9.4-12.4) fL Segmented Neutrophils 84 H (1.78-5.38) % Lymphocytes (Manual) 13 L (24-44) % Monocytes (Manual) 2 (0.0-12.0) % Eosinophils (Manual) 1 (0.00-3.0) % Toxic Granulation 1+ Platelet Estimate NORMAL (NORMAL) RBC Morphology NORMAL Sodium 137 (135-145) mmol/L Potassium 3.9 (3.5-5.1) mmol/L Chloride 98 (98-107) mmol/L Carbon Dioxide 31 H (22-30) mmol/L Anion Gap 12.9 (5-15) MEQ/L BUN 16 (9-20) mg/dL Creatinine 0.97 (0.66-1.25) mg/dL Estimated GFR 90.5 ML/MIN Glucose 98 (74-106) mg/dL Calcium 8.8 (8.4-10.2) mg/dL Total Bilirubin 0.80 (0.2-1.3) mg/dL AST 17 (17-59) U/L ALT 21 (0-50) U/L Alkaline Phosphatase 100 (38-126) U/L Serum Total Protein 7.4 (6.3-8.2) g/dL Albumin 4.4 (3.5-5.0) g/dL Procalcitonin 0.057 (0.030-0.080) ng/mL 05/13/24 Range/Units 05:33 WBC (4.23-9.07) x10^3/uL RBC (4.63-6.08) x10^6/uL Hgb (13.7-17.5) g/dL Hct (40.1-51.0) % MCV (79.0-92.2) fL MCH (25.7-32.2) pg MCHC (32.3-36.5) g/dL RDW (11.6-14.4) % Plt Count (163-337) x10^3/uL MPV (9.4-12.4) fL Segmented Neutrophils (1.78-5.38) % Lymphocytes (Manual) (24-44) % Monocytes (Manual) (0.0-12.0) % Eosinophils (Manual) (0.00-3.0) % Toxic Granulation Platelet Estimate (NORMAL) RBC Morphology Sodium 131 L (135-145) mmol/L Potassium 4.4 (3.5-5.1) mmol/L Chloride 99 (98-107) mmol/L Carbon Dioxide 27 (22-30) mmol/L Anion Gap 9.2 (5-15) MEQ/L BUN 14 (9-20) mg/dL Creatinine 0.85 (0.66-1.25) mg/dL Estimated GFR 100.7 ML/MIN Glucose 125 H (74-106) mg/dL Calcium 8.4 (8.4-10.2) mg/dL Total Bilirubin 0.90 (0.2-1.3) mg/dL AST 15 L (17-59) U/L ALT 18 (0-50) U/L Alkaline Phosphatase 94 (38-126) U/L Serum Total Protein 6.2 L (6.3-8.2) g/dL Albumin 3.5 (3.5-5.0) g/dL Procalcitonin (0.030-0.080) ng/mL Radiology Exams: Radiology Procedures Category Date Time Status MRI UPPER EXT JOINT W/CONTRAST [MRI] Routine Exams 05/14/24 10:51 Ordered UPPER EXTREMITY W CONTRAST [CT] Stat Exams 05/12/24 11:35 Completed
[2024-05-13] MEDS: Compazine 10 MG/2 ML IV PRN (12:52)
--- NOTE | 2024-05-13 13:41 | PCM.NOTE ---
Date and Time: 05/13/24 1335 Subjective Assessment: 05/12/24 Mr.GOODMAN BUSCH is a 58 year old male with PMHX of HTN, migraines, angina, bipolar, depression, sleep apnea ( non-compliant), GERD, DJD, OA, and ADD. The patient presented to the ER today with a worsening skin condition, initially diagnosed as poison praveen or contact dermatitis, approximately a week and a half prior at [facility]. The condition initially improved, but then deteriorated significantly. The patient reported severe pain and inability to straighten the affected arm, suggesting significant inflammation and possible infection. The patient noted the onset of purulent drainage approximately two days prior to a recent appointment with Dr. Cordova, around the or . The patient reported some relief after the area was cleaned and some of the purulent material was expressed. Culture completed in ER. WBC 27.8. He was started on IV antibiotics and pain meds in the ER- will continue. CT RUE pending. Ortho consulted. He denies CP, SOB, abd. pain , N/V/D. 05/13/24 Pt resting in bed. He does reports a H/A, and increased pain of right elbow today. Edema and erythemia increased. Nursing has drawn more lines where redness has spread. Ortho to see pt today. Discussed pt case with Ortho on the phone today as pt states he needs to leave tomorrow for pain management appointment in [place] and a court case. Pt agreeable to stay another night. MRI ordered for tomorrow. Cleocin changed to Levaquin as WBC up now at 29.7. Continue Vancomycin. Right elbow continues to drain purulent drainage. Wound culture and Blood cultures x2 pending. He denies CP, SOB, abd. pain , N/V/D. - Review of Systems Constitutional: No Fever, No Chills Eyes: No Symptoms Ears, Nose, & Throat: No Symptoms Respiratory: No Cough, No Short Of Breath Cardiac: No Chest Pain, No Edema, No Syncope Abdominal/Gastrointestinal: No Abdominal Pain, No Nausea, No Vomiting, No Diarrhea Genitourinary Symptoms: No Dysuria Musculoskeletal: No Back Pain, No Neck Pain Skin: Skin Lesions (Multiple lesions of BLLE and BLLE in various stages of heal ing from poision praveen. Right elbow open wounds with edema, erythema and purulent draiange, left elbow pain and redness.)), No Rash Neurological: No Dizziness, No Focal Weakness, No Sensory Changes Psychological: No Symptoms Endocrine: No Symptoms Hematologic/Lymphatic: No Symptoms Immunological/Allergic: No Symptoms Objective Exam General Appearance: no apparent distress, alert Neurologic Exam: alert, oriented x 3, cooperative, normal mood/affect, nml cerebellar function, sensation nml, No motor deficits Skin Exam: normal color, warm, dry, other (Multiple lesions of BLLE and BLLE in various stages of healing from poision praveen. Right elbow open wounds with edema, erythema and purulent draiange, left elbow pain and redness.) Wound Assessment: Skin/Wound Assessment Wound/Incision Assessment Start: 05/12/24 12:58 Text: Status: Active Freq: Q6H Protocol: Document 05/13/24 08:00 [facility] (Rec: 05/13/24 09:39 [facility] [id number]) Wound/Incision Assessment Right Elbow Wound Assessment Shift Assessment Wound Type Cellulitis Wound Stage Non Pressure Wound Drainage Amount Minimal Drainage Description Yellow Drainage Odor None/Absent General Appearance Open to air,Draining Surrounding Tissue Bright Red,Edematous Comment Reddness outside of margins, this nurse outlined new margins. Wound Photo Photo Taken No Eye Exam: PERRL, EOMI, eyes nml inspection Ears, Nose, Throat Exam: normal ENT inspection, pharynx normal, moist mucous membranes Neck Exam: normal inspection, non-tender, supple, full range of motion Respiratory Exam: normal breath sounds, lungs clear, No respiratory distress Cardiovascular Exam: regular rate/rhythm, normal heart sounds Gastrointestinal/Abdomen Exam: soft, No tenderness, No mass Extremity Exam: normal inspection, normal range of motion Back Exam: normal inspection, normal range of motion, No CVA tenderness, No vertebral tenderness Male Genitalia Exam: deferred Rectal Exam: deferred Objective Data Vital Signs: Vital Signs - 24 hr Temp Pulse Resp BP Pulse Ox 05/13/24 11:50 98.0 F 66 16 148/70 96 05/13/24 07:22 98.6 F 73 16 172/84 97 05/13/24 04:00 99.9 F 73 20 155/73 95 05/13/24 00:00 99.6 F 77 18 123/67 96 05/12/24 19:52 99.2 F 79 19 134/63 94 L 05/12/24 15:33 98.9 F 77 16 148/68 96 Pain Assessment - Last Documented Pain Intensity 5 Pain Scale Used 0-10 Pain Scale Intake and Output: Intake & Output 05/11/24 05/12/24 05/13/24 05/14/24 11:59 11:59 11:59 11:59 Intake Total 1630 Output Total 600 Balance 1030 Weight 107.048 kg 111.8 kg Lab Results: Lab Results-Last 24 Hours 05/12/24 05/13/24 05/13/24 Range/Units 11:46 05:33 05:33 WBC 29.7 H* (4.23-9.07) x10^3/uL RBC 4.26 L (4.63-6.08) x10^6/uL Hgb 13.8 (13.7-17.5) g/dL Hct 40.9 (40.1-51.0) % MCV 96.0 H (79.0-92.2) fL MCH 32.4 H (25.7-32.2) pg MCHC 33.7 (32.3-36.5) g/dL RDW 13.2 (11.6-14.4) % Plt Count 177 (163-337) x10^3/uL MPV 9.9 (9.4-12.4) fL Segmented Neutrophils 84 H (1.78-5.38) % Lymphocytes (Manual) 13 L (24-44) % Monocytes (Manual) 2 (0.0-12.0) % Eosinophils (Manual) 1 (0.00-3.0) % Toxic Granulation 1+ Platelet Estimate NORMAL (NORMAL) RBC Morphology NORMAL Sodium 131 L (135-145) mmol/L Potassium 4.4 (3.5-5.1) mmol/L Chloride 99 (98-107) mmol/L Carbon Dioxide 27 (22-30) mmol/L Anion Gap 9.2 (5-15) MEQ/L BUN 14 (9-20) mg/dL Creatinine 0.85 (0.66-1.25) mg/dL Estimated GFR 100.7 ML/MIN Glucose 125 H (74-106) mg/dL Calcium 8.4 (8.4-10.2) mg/dL Total Bilirubin 0.90 (0.2-1.3) mg/dL AST 15 L (17-59) U/L ALT 18 (0-50) U/L Alkaline Phosphatase 94 (38-126) U/L Serum Total Protein 6.2 L (6.3-8.2) g/dL Albumin 3.5 (3.5-5.0) g/dL Radiology Exams: Radiology Procedures Category Date Time Status MRI UPPER EXT JOINT W/CONTRAST [MRI] Routine Exams 05/14/24 10:51 Ordered PICC LINE PLACEMENT Routine Exams 05/13/24 12:31 Stop Req UPPER EXTREMITY W CONTRAST [CT] Stat Exams 05/12/24 11:35 Completed Assessment/Plan (1) Cellulitis of right elbow Current Visit: Yes Status: Acute Code(s): L03.113 - CELLULITIS OF RIGHT UPPER LIMB (2) Right elbow pain Current Visit: Yes Status: Acute Code(s): M25.521 - PAIN IN RIGHT ELBOW (3) Wound cellulitis Current Visit: Yes Status: Acute Code(s): L03.90 - CELLULITIS, UNSPECIFIED (4) GERD (gastroesophageal reflux disease) Current Visit: Yes Status: Acute Code(s): K21.9 - GASTRO-ESOPHAGEAL REFLUX DISEASE WITHOUT ESOPHAGITIS (5) Obesity (BMI 30.0-34.9) Current Visit: Yes Status: Chronic Code(s): E66.9 - OBESITY, UNSPECIFIED (6) Bipolar depression Current Visit: Yes Status: Chronic Code(s): F31.9 - BIPOLAR DISORDER, UNSPECIFIED (7) ADD (attention deficit disorder) Current Visit: Yes Status: Chronic Code(s): F98.8 - OTH BEHAV/EMOTN DISORD W [facility]ET [facility] AND [facility] (8) HTN (hypertension) Current Visit: Yes Status: Acute Assessment & Plan: (1) Cellulitis of right elbow Current Visit: Yes Status: Acute Assessment & Plan: - IV antibiotics, probiotocs - Upper extremity CT: IMPRESSION: 1. Evidence of distal biceps tendon repair. 2. Subcutaneous soft tissue edema noted at posterior aspect of elbow articulation and is also involving visualized arm and distally in the proximal forearm. 3. Moderate osteoarthritic changes noted at elbow articulation. 4. Multiple calcification within the soft tissue around the lateral and medial epicondyles, olecranon representing calcific tendinopathy or enthesopathy. 5. Mild elbow joint effusion noted. 6. MRI elbow joint is suggested for further evaluation if clinically indicated. - elevate arm 05/13 - Cleocin changed to Levaquin as WBC 29.7 today - Ortho coming iin to see pt today. - MRI ordered for tomorrow Code(s): L03.113 - CELLULITIS OF RIGHT UPPER LIMB (2) Right elbow pain Current Visit: Yes Status: Acute Assessment & Plan: - CT pending - Narcotic pain control Code(s): M25.521 - PAIN IN RIGHT ELBOW (3) Wound cellulitis Current Visit: Yes Status: Acute Assessment & Plan: - IV antibiotics - Upper extremity CT reviewed 05/13 - worsening- ortho notified this morning Code(s): L03.90 - CELLULITIS, UNSPECIFIED (4) GERD (gastroesophageal reflux disease) Current Visit: Yes Status: Acute Assessment & Plan: - Continue protonix Code(s): K21.9 - GASTRO-ESOPHAGEAL REFLUX DISEASE WITHOUT ESOPHAGITIS (5) Obesity (BMI 30.0-34.9) Current Visit: Yes Status: Chronic Assessment & Plan: - advised diet and exercise control Code(s): E66.9 - OBESITY, UNSPECIFIED (6) Bipolar depression Current Visit: Yes Status: Chronic Assessment & Plan: - Continue Cymbalta Code(s): F31.9 - BIPOLAR DISORDER, UNSPECIFIED (7) ADD (attention deficit disorder) Current Visit: Yes Status: Chronic Assessment & Plan: - Continue Adderall Code(s): F98.8 - OTH BEHAV/EMOTN DISORD W ONSET USLY OCCUR IN CHLDHD AND ADOL (8) HTN (hypertension) Current Visit: Yes Status: Acute Assessment & Plan: - IVF bolus gave in ER - No known hx - monitor - tele VTE: SCD's PPI: protonix Next of KIN: Miranda Sanchez [phone] D/C plan: 2-3 days Code status: Full Code(s): I10 - ESSENTIAL (PRIMARY) HYPERTENSION Code(s): I10 - ESSENTIAL (PRIMARY) HYPERTENSION
--- NOTE | 2024-05-13 16:19 | XRAY ---
CLINICAL HISTORY: PICC Line Placement COMPARISON: 10/06/2020. TECHNIQUE: X-ray of the chest in AP portable view. FINDINGS: PICC line is seen extending from the left upper extremity with the distal tip seen reaching the superior vena cava. The cardiac shadow appears enlarged. Mild prominence of perihilar vascular markings probably due to mild pulmonary vascular congestion The interstitial pattern is noted bilaterally in parahilar and bases. Faint tiny nodular shadows are suspected at the left lower zone laterally. No signs of pleural effusion. The thoracic cage, ribs, and bones are normal. IMPRESSION: 1. PICC line is seen extending from the left upper extremity with the distal tip seen reaching the superior vena cava. 2. Apparent cardiomegaly with mild pulmonary vascular congestion. 3. In comparison with the previous study dated 10/06/2020: The interstitial pattern is noted bilaterally in parahilar and bases, almost stable. 4. A tiny hyperdense nodule is suspected at the left lower zone laterally, a stable finding. Electronically Signed by: Blair Oneil MD. (05/13/2024 16:14:32 EDT)
[2024-05-13] MEDS: Sodium Chloride 0.9% 10 ML FLUSH Syringe PICC SCH (22:00)
[2024-05-14 05:16] LABS: Hematocrit 43.8 % (40.1-51.0); Hemoglobin 14.9 g/dL (13.7-17.5); Mean Corpuscular Hemoglobin 32.3 pg (25.7-32.2); Mean Platelet Volume 9.8 fL (9.4-12.4); Platelet Count 188 x10^3/uL (163-337); Red Blood Count 4.61 x10^6/uL (4.63-6.08); Red Cell Distribution Width 12.7 % (11.6-14.4)
--- NOTE | 2024-05-14 05:32 | PCM.NOTE ---
Date and Time: 05/14/24 0528 Subjective Assessment: Mr.GOODMAN BUSCH is a 58 year old male with PMHX of HTN, migraines, angina, bipolar, depression, sleep apnea ( non-compliant), GERD, DJD, OA, and ADD admitted 05/12/24 with cellulitis of the right elbow after experiencing worsening skin condition, initially diagnosed as poison praveen or contact dermatitis, approximately a week and a half prior to presentation at [facility]. The condition initially improved, but then deteriorated significantly. The patient reported severe pain and inability to straighten the affected arm, suggesting significant inflammation and possible infection. The patient noted the onset of purulent drainage approximately two days prior to a recent appointment with Dr. Cordova, around the 15th or 16th of the month. The patient reported some relief after the area was cleaned and some of the purulent material was expressed. Culture completed in ER. WBC 27.8. Initial abx treatment with Cleocin. CT imaging showing Current treatment with vancomycin and levofloxacin (05/13/24). Ortho consulted with plans to continue current regimen of antibiotics with MRI pending. Patient is requesting discharge due to court date and pain management appointment. Objective Exam Wound Assessment: Skin/Wound Assessment Wound/Incision Assessment Start: 05/12/24 12:58 Text: Status: Active Freq: Q6H Protocol: Document 05/14/24 02:00 MM (Rec: 05/14/24 02:07 MM [id number]) Wound/Incision Assessment Right Elbow Wound Assessment Shift Assessment Wound Type Cellulitis Wound Stage Non Pressure Wound Drainage Amount Minimal Drainage Description Yellow Drainage Odor None/Absent General Appearance Open to air,Draining Surrounding Tissue Bright Red,Edematous Comment redness noted outside of margins marked by day shift RN . Wound Photo Photo Taken No Objective Data Vital Signs: Vital Signs - 24 hr Temp Pulse Resp BP Pulse Ox 05/14/24 04:00 99.9 F 73 20 151/70 94 L 05/13/24 20:00 97.8 F 65 18 173/74 93 L 05/13/24 15:55 98.0 F 60 16 131/64 05/13/24 11:50 98.0 F 66 16 148/70 96 05/13/24 07:22 98.6 F 73 16 172/84 97 Pain Assessment - Last Documented Pain Intensity 0 Pain Scale Used 0-10 Pain Scale Intake and Output: Intake & Output 07/19/24 07/20/24 07/21/24 07/22/24 11:59 11:59 11:59 11:59 Intake Total 1630 480 Output Total 600 Balance 1030 480 Weight 107.048 kg 111.8 kg Lab Results: Lab Results-Last 24 Hours 05/13/24 05/13/24 Range/Units 05:33 05:33 WBC 29.7 H* (4.23-9.07) x10^3/uL RBC 4.26 L (4.63-6.08) x10^6/uL Hgb 13.8 (13.7-17.5) g/dL Hct 40.9 (40.1-51.0) % MCV 96.0 H (79.0-92.2) fL MCH 32.4 H (25.7-32.2) pg MCHC 33.7 (32.3-36.5) g/dL RDW 13.2 (11.6-14.4) % Plt Count 177 (163-337) x10^3/uL MPV 9.9 (9.4-12.4) fL Sodium 131 L (135-145) mmol/L Potassium 4.4 (3.5-5.1) mmol/L Chloride 99 (98-107) mmol/L Carbon Dioxide 27 (22-30) mmol/L Anion Gap 9.2 (5-15) MEQ/L BUN 14 (9-20) mg/dL Creatinine 0.85 (0.66-1.25) mg/dL Estimated GFR 100.7 ML/MIN Glucose 125 H (74-106) mg/dL Calcium 8.4 (8.4-10.2) mg/dL Total Bilirubin 0.90 (0.2-1.3) mg/dL AST 15 L (17-59) U/L ALT 18 (0-50) U/L Alkaline Phosphatase 94 (38-126) U/L Serum Total Protein 6.2 L (6.3-8.2) g/dL Albumin 3.5 (3.5-5.0) g/dL Radiology Exams: Radiology Procedures Category Date Time Status CHEST 1 VIEW (PORTABLE) Stat Exams 05/13/24 15:36 Completed MRI UPPER EXT JOINT W/CONTRAST [MRI] Routine Exams 05/14/24 10:51 Ordered UPPER EXTREMITY W CONTRAST [CT] Stat Exams 05/12/24 11:35 Completed Assessment/Plan (1) Cellulitis of right elbow Current Visit: Yes Status: Acute Assessment & Plan: - Upper extremity CT: IMPRESSION: 1. Evidence of distal biceps tendon repair. 2. Subcutaneous soft tissue edema noted at posterior aspect of elbow articulation and is also involving visualized arm and distally in the proximal forearm. 3. Moderate osteoarthritic changes noted at elbow articulation. 4. Multiple calcification within the soft tissue around the lateral and medial epicondyles, olecranon representing calcific tendinopathy or enthesopathy. 5. Mild elbow joint effusion noted. 6. MRI elbow joint is suggested for further evaluation if clinically indicated. - elevate affected limb -Vanc/ levofloxacin -Antimicrobial history -Cleocin (05/12-05/13/24) -Vancomycin 05/12/24 - -Levofloxacin 05/13/24 - - MRI ordered and pending -Ortho consulted with recs to continue current abx regimen as stated above Code(s): L03.113 - CELLULITIS OF RIGHT UPPER LIMB (2) Wound cellulitis Current Visit: Yes Status: Acute Assessment & Plan: - Continue Vanc/ levaquin - Upper extremity CT reviewed -MRI scheduled and pending Code(s): L03.90 - CELLULITIS, UNSPECIFIED (3) HTN (hypertension) Current Visit: Yes Status: Acute Assessment & Plan: - IVF bolus in ER - No known hx - monitor - tele Code(s): I10 - ESSENTIAL (PRIMARY) HYPERTENSION (4) GERD (gastroesophageal reflux disease) Current Visit: Yes Status: Acute Assessment & Plan: - Continue protonix Code(s): K21.9 - GASTRO-ESOPHAGEAL REFLUX DISEASE WITHOUT ESOPHAGITIS (5) Right elbow pain Current Visit: Yes Status: Acute Assessment & Plan: - CT Upper extremity demonstrating Subcutaneous soft tissue edema noted at posterior aspect of elbow articulation and is also involving visualized arm and distally in the proximal. Moderate osteoarthritic changes noted at elbow articulation. Multiple calcif ication within the soft tissue around the lateral and medial epicondyles, olecranon representing calcific tendinopathy or enthesopathy. Mild elbow joint effusion noted. -Narcotic pain control -MRI ordered and pending -Ortho consulted, appreciate recs Code(s): M25.521 - PAIN IN RIGHT ELBOW (6) ADD (attention deficit disorder) Current Visit: Yes Status: Chronic Assessment & Plan: - Continue Adderall Code(s): F98.8 - OTH BEHAV/EMOTN DISORD W ONSET USLY OCCUR IN CHLDHD AND ADOL (7) Bipolar depression Current Visit: Yes Status: Chronic Assessment & Plan: - Continue Cymbalta Code(s): F31.9 - BIPOLAR DISORDER, UNSPECIFIED (8) Obesity (BMI 30.0-34.9) Current Visit: Yes Status: Chronic Assessment & Plan: advised diet and exercise control VTE: SCD's PPI: protonix Next of KIN: Miranda Sanchez [phone] D/C plan: 2-3 days Code status: Full Code(s): E66.9 - OBESITY, UNSPECIFIED
[2024-05-14 05:33] LABS: ALBUMIN 3.8 g/dL (3.5-5.0); ANION GAP 11.7 MEQ/L (5-15); BILIRUBIN,TOTAL 0.7 mg/dL (0.2-1.3); Calcium 8.9 mg/dL (8.4-10.2); Creatinine 1 0.76 mg/dL (0.66-1.25); EST GLOMERULAR FILTRATION RATE 104.2 ML/MIN; Potassium 4.2 mmol/L (3.5-5.1)
[2024-05-14 07:46] VITALS: BP 144/66; PULSE 71; RESP 17; TEMP 97.2; O2SAT 95
[2024-05-14] MEDS: LEVOFLOXACIN 750MG/150ML D5W 750 MG/150 ML BAG IV SCH (08:22)
--- NOTE | 2024-05-14 08:44 | CONS ---
REASON FOR CONSULT: Right arm pain and swelling. HISTORY: This 59-year-old male was admitted this morning for a chief complaint of right arm pain, redness, swelling, progressive symptoms. Problems began April 24 when he developed poison praveen while cutting a tree. States that he had a rash on both upper extremities. He went to emergency room at [facility] a few days later and was placed on oral steroids. He states that also about that time he began to develop small pustules on his bilateral upper extremities and these began to appear gradually on the lower extremities as well. Starting about 3 to 4 days ago he developed increasing redness, swelling, pain in the right elbow region and this became progressive so that he came to the emergency room this morning. He had been treated with oral steroids after his initial emergency room visit at [facility] on approximately April 27. He stayed on the tapering dose of prednisone until his admission. He denies a history of known MRSA, prior skin structure infections, history of gout, history of elbow trouble. He denies fever and chills. He has been noting purulent-appearing drainage from the cutaneous lesions, which appear like pustules. In the emergency room he had an evaluation, which included a CT of the right arm and blood work. He was noted to have WBC count elevated to 27.8 from his blood work. He was started on IV antibiotics and admitted to the hospital with [facility]. REVIEW OF SYSTEMS: Negative for fever, chills, shortness of breath, syncope, chest pain, abdominal pain, nausea, vomiting, diarrhea, dysuria. He does have a history of chronic neck pain and was seen by a pain management clinic. He denies dizziness, weakness, sensory change. HOME MEDICATIONS: Adderall 30 mg p.o. daily; duloxetine 30 mg daily; Percocet 10/325; one tablet every 4 to 6 hours and pantoprazole 40 mg daily. ALLERGIES: AMOXICILLIN. PAST MEDICAL HISTORY: Significant for angina, hypertension, sleep apnea, arthritis, cervical disc disease, GERD syndrome, depression. PAST SURGICAL HISTORY: Significant for cholecystectomy, right arm and leg surgery following an accident. 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 PHYSICAL EXAMINATION: GENERAL: Awake, alert, oriented male in no acute distress. HEENT: Unremarkable. EXTREMITIES: Upper extremity exam: There is swelling and redness of the right upper extremity, primarily in the posterior aspect of the right proximal forearm and elbow. The forearm is swollen circumferentially and he is tender in the posterior aspect of the elbow, spanning an area of about 6 inches in length. He can flex to 90 degrees and extend to-10 degrees. This does produce posterior elbow pain. Pronation and supination are pain-free. Small cutaneous pustule-like lesions are seen on the forearm of both upper extremities with several small similar lesions on his lower extremities. The bursa appears to be slightly swollen but it does not visibly protrude more than the rest of the arm. LABORATORY: WBC count 27.8, hemoglobin 15.1, hematocrit 45.1. Platelets 203. Sodium 137, potassium 3.9, chloride 98, carbon dioxide 31. CT scan, right upper extremity, final impression: 1) Evidence of distal biceps tendon repair. 2) Subcutaneous soft tissue edema posterior aspect of elbow. 3) Moderate osteoarthritic changes noted at elbow articulation. 4) Multiple calcification within soft tissue around the lateral and medial epicondyle. 5) Mild elbow joint effusion. IMPRESSION: Cellulitis right upper extremity with multiple cutaneous pustule-like lesions on bilateral upper and lower extremities. This is consistent with a possible diagnosis of cutaneous Methicillin-resistant Staphylococcus aureus. At this point it is difficult to tell if he has septic bursa or simple cellulitis. He has been started on clindamycin and vancomycin and has only had one dose of each. Because he is afebrile and nontoxic, we will continue IV antibiotics and observation. He has been told that he may indeed require incision and drainage of the bursa. However, we will wait 24 to 48 hours to monitor the impact of the antibiotic therapy. We will continue to follow.
[2024-05-14] MEDS: TROUGH DRUG LEVELS IJ ONE (09:54)
--- NOTE | 2024-05-14 11:09 | PCM.DS ---
Discharge Summary Date of Admission: 05/12/24 12:57 Date of Discharge: 05/14/24 Admitting Physician: ORIN HARRIS MD Consults: Consults on Case 05/12/24 13:29 Consult Ortho ROUTINE Primary Care Provider: BAM CORDOVA NICKOLAS Allergies Allergies amoxicillin Allergy (Severe, Verified 05/12/24 13:05) itching, chest pain Hospital Summary - Hospital Course Hospital Course: Mr.GOODMAN BUSCH is a 58 year old male with PMHX of HTN, migraines, angina, bipolar, depression, sleep apnea ( non-compliant), GERD, DJD, OA, and ADD admitted 05/12/24 with cellulitis of the right elbow after experiencing worsening skin condition, initially diagnosed as poison praveen or contact dermatitis, approximately a week and a half prior to presentation at [facility]. The condition initially improved, but then deteriorated significantly. The patient reported severe pain and inability to straighten the affected arm, suggesting significant inflammation and possible infection. The patient noted the onset of purulent drainage approximately two days prior to a recent appointment with Dr. Cordova, around the or of the month. The patient reported some relief after the area was cleaned and some of the purulent material was expressed. Culture completed in ER. WBC 27.8. Initial abx treatment with Cleocin. CT imaging showing subcutaneous soft tissue edema noted at posterior aspect of elbow articulation and is also involving visualized arm and distally in the proximal forearm with suggestions for MRI. Current treatment with vancomycin and levofloxacin (05/13/24). Ortho consulted with plans to continue current regimen of antibiotics with MRI as OP and close follow up this week. Advised IP treatment with MRI and IV antibiotic -patient adamant on discharging today due to court date and pain management appointment. Antibiotic have been set up OP with Ortho following. Levaquin called to pharmacy. Discharge Note New Diagnosis: cellulitis right elbow New Medications: Vanc/levaquin Follow Up: Ortho this week/pcp Results pending: cultures MRI as OP per Ortho Latest Assessment & Plan (1) Cellulitis of right elbow Current Visit: Yes Status: Acute Assessment & Plan: - Upper extremity CT: IMPRESSION: 1. Evidence of distal biceps tendon repair. 2. Subcutaneous soft tissue edema noted at posterior aspect of elbow articulation and is also involving visualized arm and distally in the proximal forearm. 3. Moderate osteoarthritic changes noted at elbow articulation. 4. Multiple calcification within the soft tissue around the lateral and medial epicondyles, olecranon representing calcific tendinopathy or enthesopathy. 5. Mild elbow joint effusion noted. 6. MRI elbow joint is suggested for further evaluation if clinically indicated. - elevate affected limb -Vanc/ levofloxacin -Antimicrobial history -Cleocin (05/12-05/13/24) -Vancomycin 05/12/24 - continue for 10 days as OP -Levofloxacin 05/13/24 - continue for 10 days as OP - MRI as OP -Ortho consulted with recs to continue current abx regimen as stated above Code(s): L03.113 - CELLULITIS OF RIGHT UPPER LIMB (2) Wound cellulitis Current Visit: Yes Status: Acute Assessment & Plan: - Continue Vanc/ levaquin - Upper extremity CT reviewed -MRI /abx as OP Code(s): L03.90 - CELLULITIS, UNSPECIFIED (3) HTN (hypertension) Current Visit: Yes Status: Acute Assessment & Plan: - IVF bolus in ER - No known hx - monitor - tele Code(s): I10 - ESSENTIAL (PRIMARY) HYPERTENSION (4) GERD (gastroesophageal reflux disease) Current Visit: Yes Status: Acute Assessment & Plan: - Continue protonix Code(s): K21.9 - GASTRO-ESOPHAGEAL REFLUX DISEASE WITHOUT ESOPHAGITIS (5) Right elbow pain Current Visit: Yes Status: Acute Assessment & Plan: - CT Upper extremity demonstrating Subcutaneous soft tissue edema noted at posterior aspect of elbow articulation and is also involving visualized arm and distally in the proximal. Moderate osteoarthritic changes noted at elbow articulation. Multiple calcification within the soft tissue around the lateral and medial epicondyles, olecranon representing calcific tendinopathy or enthesopathy. Mild elbow joint effusion noted. -Narcotic pain control -MRI -abx as stated above Code(s): M25.521 - PAIN IN RIGHT ELBOW (6) ADD (attention deficit disorder) Current Visit: Yes Status: Chronic Assessment & Plan: - Continue Adderall Code(s): F98.8 - OTH BEHAV/EMOTN DISORD W ONSET USLY OCCUR IN CHLDHD AND ADOL (7) Bipolar depression Current Visit: Yes Status: Chronic Assessment & Plan: - Continue Cymbalta Code(s): F31.9 - BIPOLAR DISORDER, UNSPECIFIED (8) Obesity (BMI 30.0-34.9) Current Visit: Yes Status: Chronic Assessment & Plan: advised diet and exercise control I spent 35 minutes [id number] with the patient on the day of discharge performing discharge exam, discussing hospital stay and discharge instructions with patient and caregivers, preparation of discharge records, prescriptions & referral forms and addressing any questions/concerns the patient had as documented above. - Vitals & Intake/Output Vital Signs: Vital Signs Temperature 97.2 F 05/14/24 07:44 Pulse Rate 71 05/14/24 07:44 Respiratory Rate 17 05/14/24 07:44 Blood Pressure 144/66 05/14/24 07:44 O2 Sat by Pulse Oximetry 95 05/14/24 07:44 Intake & Output: Intake & Output 05/11/24 05/12/24 05/13/24 05/14/24 11:59 11:59 11:59 11:59 Intake Total 1630 600 Output Total 600 Balance 1030 600 Weight 107.048 kg 111.8 kg - Lab Result Diagrams: 05/14/24 04:27 05/14/24 04:27 Lab Results-Last 24 Hrs: Lab Results-Last 24 Hours 05/14/24 05/14/24 05/14/24 Range/Units 04:27 04:27 09:32 WBC 26.0 H* (4.23-9.07) x10^3/uL RBC 4.61 L (4.63-6.08) x10^6/uL Hgb 14.9 (13.7-17.5) g/dL Hct 43.8 (40.1-51.0) % MCV 95.0 H (79.0-92.2) fL MCH 32.3 H (25.7-32.2) pg MCHC 34.0 (32.3-36.5) g/dL RDW 12.7 (11.6-14.4) % Plt Count 188 (163-337) x10^3/uL MPV 9.8 (9.4-12.4) fL Sodium 134 L (135-145) mmol/L Potassium 4.2 (3.5-5.1) mmol/L Chloride 99 (98-107) mmol/L Carbon Dioxide 27 (22-30) mmol/L Anion Gap 11.7 (5-15) MEQ/L BUN 16 (9-20) mg/dL Creatinine 0.76 (0.66-1.25) mg/dL Estimated GFR 104.2 ML/MIN Glucose 123 H (74-106) mg/dL Calcium 8.9 (8.4-10.2) mg/dL Total Bilirubin 0.70 (0.2-1.3) mg/dL AST 17 (17-59) U/L ALT 17 (0-50) U/L Alkaline Phosphatase 106 (38-126) U/L Serum Total Protein 7.0 (6.3-8.2) g/dL Albumin 3.8 (3.5-5.0) g/dL Vancomycin Trough 6.76 L (10-20) ug/mL Micro Results-Entire Visit: Microbiology 05/12/24 11:46 Blood Culture - Preliminary Blood 05/12/24 11:54 Blood Culture - Preliminary Blood 05/12/24 18:53 Wound Culture - Preliminary Arm - Right Upper GRAM POSITIVE ID AND SENSITIVITY PENDING - Radiology Exams Ordered Rad Exams-Entire Visit: Radiology Procedures Category Date Time Status CHEST 1 VIEW (PORTABLE) Stat Exams 05/13/24 15:36 Completed MRI UPPER EXT JOINT W/CONTRAST [MRI] Routine Exams 05/14/24 10:51 Ordered UPPER EXTREMITY W CONTRAST [CT] Stat Exams 05/12/24 11:35 Completed Discharge Exam General Appearance: no apparent distress Neurologic Exam: alert, oriented x 3, cooperative Eye Exam: PERRL Ears, Nose, Throat Exam: normal ENT inspection Neck Exam: normal inspection Respiratory Exam: normal breath sounds, lungs clear Cardiovascular Exam: regular rate/rhythm, normal heart sounds Gastrointestinal/Abdomen Exam: soft, normal bowel sounds Male Genitalia Exam: deferred Rectal Exam: deferred Back Exam: normal inspection Extremity Exam: other (right elbow with surrounding erythema/receding marked boarder) Wound Assessment: Skin/Wound Assessment Wound/Incision Assessment Start: 05/12/24 12:58 Text: Status: Active Freq: Q6H Protocol: Document 05/14/24 08:00 [facility] (Rec: 05/14/24 08:02 [facility] [id number]) Wound/Incision Assessment Right Elbow Wound Assessment Shift Assessment Wound Type Cellulitis Wound Stage Non Pressure Wound Drainage Amount Minimal Drainage Description Yellow Drainage Odor None/Absent General Appearance Open to air,Draining Surrounding Tissue Bright Red,Edematous Wound Photo Photo Taken No Final Diagnosis/Problem List - Final Discharge Diagnosis/Problem (1) Cellulitis of right elbow Current Visit: Yes Status: Acute Code(s): L03.113 - CELLULITIS OF RIGHT UPPER LIMB (2) Wound cellulitis Current Visit: Yes Status: Acute Code(s): L03.90 - CELLULITIS, UNSPECIFIED (3) HTN (hypertension) Current Visit: Yes Status: Acute Code(s): I10 - ESSENTIAL (PRIMARY) HYPERTENSION (4) GERD (gastroesophageal reflux disease) Current Visit: Yes Status: Acute Code(s): K21.9 - GASTRO-ESOPHAGEAL REFLUX DISEASE WITHOUT ESOPHAGITIS (5) Right elbow pain Current Visit: Yes Status: Acute Code(s): M25.521 - PAIN IN RIGHT ELBOW (6) ADD (attention deficit disorder) Current Visit: Yes Status: Chronic Code(s): F98.8 - OTH BEHAV/EMOTN DISORD W ONSET USLY OCCUR IN CHLDHD AND ADOL (7) Bipolar depression Current Visit: Yes Status: Chronic Code(s): F31.9 - BIPOLAR DISORDER, UNSPECIFIED (8) Obesity (BMI 30.0-34.9) Current Visit: Yes Status: Chronic Code(s): E66.9 - OBESITY, UNSPECIFIED - Discharge Disposition: Home, Self-Care Condition: Stable Prescriptions: New levoFLOXacin [Levofloxacin] 750 mg PO DAILY 10 Days #10 tablet Vancomycin/Water For Inj (Peg) [Vancomycin 1 Gram/200 ml Bag] 1 gm IV BID iv piggy Continue Dextroamphetamine/Amphetamine [Adderall 10 mg Tablet] 30 mg PO DAILY Duloxetine HCl 30 mg [Cymbalta 30 MG Capsule] 30 mg PO DAILY Oxycodone / APAP 10/325 mg [Oxycodone-Acetaminophen 10-325] 1 tab PO Q4-6HPRN PRN PRN Reason: Pain PANTOPRAZOLE 40 mg Tablet [Protonix 40MG Tablet] 40 mg PO BID Instructions: Cellulitis (skin infection) in adults - Discharge instructions Additional Instructions: YOUR FIRST APT FOR INFUSIONS IS TODAY AT 5PM AT [facility] THESE WILL BE FOR 7 DAYS Follow up with: BAM CORDOVA MD [Primary Care Provider] - 05/21/24 10:45 am HANSEL BYRNE MD [ACTIVE STAFF] - 05/16/24 11:30 am Forms: Discharge Instructions, Work/School Release Form
== END 2024-05-14 11:35 | disposition home or self-care (01) ==
LOC: ED 11:05 → MED SURG 12:57
PROVIDERS: ADMIT Internal Medicine; ATTEND Internal Medicine
DX: L03.113 Cellulitis of right upper limb (principal); I10 Essential (primary) hypertension; K21.9 Gastro-esophageal reflux disease without esophagitis; M25.521 Pain in right elbow; F98.8 Other specified behavioral and emotional disorders with onset usually occurring in childhood and adolescence; F31.9 Bipolar disorder, unspecified; E66.9 Obesity, unspecified; D72.829 Elevated white blood cell count, unspecified; Z79.899 Other long term (current) drug therapy
CPT/HCPCS: 36000; 36415; 36573; 71045; 73201; 80053; 80202; 83605; 84145; 85025; 85027; 85652; 87040; 87070; 87077; 87186; 96365; 96367; 96374; 96375; 99222; 99232; 99285; G0378; J0696; J1885; J1956; J2270; J2405; Q3014; A9270-GY; J3370

== ENCOUNTER 2024-05-25 11:05 | Day surgery (SDC) | payer MEDICARE ==
[2024-05-25] MEDS: Pepcid 20 MG VIAL IV ONE (11:32)
[2024-05-25] MEDS: Reglan 10 MG/2 ML IV ONE (11:32)
[2024-05-25] MEDS: Lactated Ringers 1,000 ML IV SCH (11:32)
[2024-05-25 11:49] LABS: Hematocrit 40.4 % (40.1-51.0); Hemoglobin 13.6 g/dL (13.7-17.5); Mean Cell Volume 95.7 fL (79.0-92.2); Mean Corpuscular Hemoglobin 32.2 pg (25.7-32.2); Mean Corpuscular Hgb Concent. 33.7 g/dL (32.3-36.5); Mean Platelet Volume 9.2 fL (9.4-12.4); Platelet Count 266 x10^3/uL (163-337); Red Blood Count 4.22 x10^6/uL (4.63-6.08); Red Cell Distribution Width 12.2 % (11.6-14.4); White Blood Count 7.6 x10^3/uL (4.23-9.07)
[2024-05-25 12:04] LABS: ALBUMIN 4.2 g/dL (3.5-5.0); ANION GAP 11.1 MEQ/L (5-15); BILIRUBIN,TOTAL 0.5 mg/dL (0.2-1.3); Calcium 9.3 mg/dL (8.4-10.2); Creatinine 1 0.89 mg/dL (0.66-1.25); EST GLOMERULAR FILTRATION RATE 99.3 ML/MIN; Potassium 4.5 mmol/L (3.5-5.1); Total Protein 7.4 g/dL (6.3-8.2)
[2024-05-25] MEDS ORDERED: Quelicin Fliptop 200 MG/10 ML ONE (12:31)
[2024-05-25] MEDS ORDERED: ROCURONIUM BROMIDE IV ONE (12:31)
[2024-05-25] MEDS ORDERED: DIPRIVAN 200 MG/20 ML IV ONE (12:31)
[2024-05-25] MEDS ORDERED: Versed 2 MG/2 ML Injection ONE (12:32)
[2024-05-25] MEDS ORDERED: SUBLIMAZE 100 MCG/2 ML ONE (12:32)
[2024-05-25] MEDS ORDERED: MARCAINE 0.25% PF/ EPI 1:200,000 ONE (12:40)
[2024-05-25] MEDS ORDERED: DILAUDID 2 MG INJECTION ONE (12:50)
[2024-05-25] MEDS ORDERED: BRIDION 200MG/2ML IV ONE (12:59)
[2024-05-25] MEDS ORDERED: TORAdol 30 mg Injection ONE (12:59)
[2024-05-25] MEDS ORDERED: Zofran 4 MG/2 ML VIAL ONE (12:59)
[2024-05-25 13:58] VITALS: RESP 18
[2024-05-25 14:23] VITALS: BP 141/96; PULSE 73; TEMP 97.9; O2SAT 94
[2024-05-25] MEDS: Sodium Chloride 0.9% 10 ML FLUSH Syringe PICC PRN (14:29)
--- NOTE | 2024-05-30 16:19 | OP ---
SURGERY DATE/TIME: 05/25/2024 [id number] PREOPERATIVE DIAGNOSIS: Right olecranon bursal abscess. POSTOPERATIVE DIAGNOSIS: Right olecranon bursal abscess. PROCEDURE PERFORMED: Right olecranon bursectomy. SURGEON: Urbano Main MD ANESTHESIA: General. FINDINGS: Thickened bursa with inflamed appearance. Triceps tendon appeared intact. INDICATION FOR PROCEDURE: Patient is a 58-year-old white male who had 1 month of olecranon bursitis. He had been treated with p.o. antibiotics and with vancomycin IV which he currently is on. It was felt that due to the fluid pocket and erythema that this should be treated with bursectomy to try to clear this up quicker. DESCRIPTION OF PROCEDURE AND FINDINGS: Patient was seen in the holding room, and identified the right elbow as correct. This was initialed by me. He was taken to the OR where he had general anesthesia. He was already on vancomycin. He was positioned supine, had sterile prepping and draping of his right upper extremity. Time-out was performed by me. The tourniquet was inflated to 250 mmHg around the upper arm. Total tourniquet time was 4 minutes. The incision was marked, curving along the lateral tip of the olecranon, 4 cm in length. This was preinjected with 10 mL of 0.25% Marcaine with epinephrine. Incision was made down through the skin, and then a rongeur was used to spread and remove bursa. This bursa was sent for tissue culture for aerobic and anaerobic culture. The wound was then thoroughly irrigated with saline. Tourniquet was released. There was minimal bleeding. The wound was then closed distally with 3-0 nylon interrupted, leaving about 1 cm open incision at the proximal end which was packed with 1/4-inch Iodoform Nu-Gauze and then sterile dressings were applied. ESTIMATED BLOOD LOSS: Zero. FLUIDS: Per the anesthesia record. SPECIMENS: Tissue for culture. DRAINS: Open wound packing. COMPLICATIONS: None. Plan is for patient to do daily wound packing with the 1/4-inch plain Nu-Gauze. He will be stopping vancomycin in 2 days and switching to doxycycline 100 mg p.o. b.i.d. for 14 days. He will be seen back in 1 week for wound check. Sutures will be removed in 2 weeks.
== END 2024-05-25 14:23 | disposition home or self-care (01) ==
LOC: SDC 11:05
PROVIDERS: ATTEND Orthopaedic Surgery
DX: M71.021 Abscess of bursa, right elbow (principal); I10 Essential (primary) hypertension; Z79.899 Other long term (current) drug therapy
CPT/HCPCS: 24105; 36415; 36591; 80053; 82550; 85027; 87046; 87070; 87075; 87116; 87206; 93005; 96374; 99140; 99211; J0330; J0878; J1170; J1642; J1885; J2250; J2405; J2704; J3010

== ENCOUNTER 2024-12-17 10:00 | Day surgery (SDC) | payer MEDICARE ==
--- NOTE | 2024-12-09 17:12 | HP ---
HISTORY OF PRESENT ILLNESS: A 59-year-old with history of ulcer in the past. Heartburn improved with the gallbladder out, but had a little bit of reflux and some right upper quadrant burning sensation, feels like skin ripping open or stabbing-type pain, worse when he gets up. PAST MEDICAL HISTORY: He has had nephrolithiasis, reflux, had headaches, had ulcers in the past, had arthritis in the past, hypertension, and heartburn in the past. HOME MEDICATIONS: Duloxetine, Adderall, and lisinopril. ALLERGIES: AMOXICILLIN caused some hives and chest pain. PAST SURGICAL HISTORY: He has had knee arthroplasty. He had hand surgery in the past. He had a cholecystectomy in the past. SOCIAL HISTORY: No smoking or alcohol abuse. FAMILY HISTORY: Negative with regard to this problem. REVIEW OF SYSTEMS: Twelve systems reviewed. No chest pain or palpitations. Other systems negative or noncontributory as above and per preadmission questionnaire. PHYSICAL EXAMINATION: GENERAL: No acute distress. HEENT: Sclerae anicteric. NECK: No JVD. CARDIOVASCULAR: Equal excursion, nonlabored breathing. CARDIOVASCULAR: Regular rate and rhythm. ABDOMEN: Soft. No peritoneal signs. SKIN: Dry. EXTREMITIES: No cyanosis or edema. NEUROLOGIC: Alert and oriented. Moving extremities symmetrically. PSYCHIATRIC: Appropriate mood and affect. IMPRESSION: Some right upper quadrant aches, some heartburn or reflux, unclear etiology. Recommend EGD to evaluate for esophagitis, peptic ulcer disease, gastritis, duodenitis, or other differential could include musculoskeletal referred pain from his back. CT scan films were reviewed in the office. Otherwise, felt he would benefit from EGD, possibly biopsy as an outpatient. Risks including but not limited to bleeding, infection; risk of bowel injury or perforation possibly requiring other procedure; risk of missed or nondiagnosis or incomplete exam possibly requiring other studies or procedures. Will proceed with EGD, possible biopsy, as an outpatient under MAC anesthesia. Otherwise, continue medications for hypertension, reflux, and headaches.
--- NOTE | 2024-12-17 08:50 | HP ---
HISTORY OF PRESENT ILLNESS: A 59-year-old, history of ulcer in the past. He had some heartburn although that it has resolved. Cholecystectomy in the past but recently some right upper quadrant burning sensation, feels like the skin ripping open or stabbing pain, worse when he gets up. He is in need of upper endoscopy for evaluation of gastritis, esophagitis, peptic ulcer disease, duodenitis, or other etiology. PAST MEDICAL HISTORY: He has had nephrolithiasis, had reflux in the past, had headaches, ulcers, arthritis, hypertension. PAST SURGICAL HISTORY: Right knee arthroplasty and reconstruction of the hand due to injuries and cholecystectomy in the past. FAMILY HISTORY: Negative with regard to this problem. SOCIAL HISTORY: No smoking. No alcohol abuse. MEDICATIONS: Duloxetine, Adderall, lisinopril. ALLERGIES: AMOXICILLIN. REVIEW OF SYSTEMS: Twelve systems reviewed. No chest pain or palpitations. Other systems negative or noncontributory as above and per preadmission questionnaire. PHYSICAL EXAMINATION: GENERAL: Height 6 feet 1 inch. BMI 32.32. HEENT: Sclerae nonicteric. NECK: No JVD. CHEST: Equal excursion, nonlabored breathing. CARDIOVASCULAR: Regular rate and rhythm. ABDOMEN: Soft. EXTREMITIES: No cyanosis or edema. NEUROLOGIC: Alert and oriented. Moving all extremities symmetrically. PSYCHIATRIC: Appropriate mood and affect. SKIN: Dry. IMPRESSION: Some right upper quadrant aches and pains, some heartburn, reflux. Recommend upper endoscopy to evaluate for esophagitis, peptic ulcer disease, gastritis, duodenitis, versus musculoskeletal or referred pain from back. We reviewed CT films in the office. I feel he would benefit from upper endoscopy, possible biopsy for evaluation. General risks of bleeding, infection; bowel injury or perforation; risk of missed or nondiagnosis or incomplete exam possibly requiring barium swallow or other studies or procedures; general risk of anesthesia, sedation; possibility of inability to find a diagnosis or etiology of his symptoms, possibly requiring other further workup or testing or referrals or treatment.
[2024-12-17] MEDS ORDERED: Lactated Ringers 1,000 ML IV ONE (10:28)
[2024-12-17] MEDS ORDERED: Lactated Ringers 1,000 ML IV SCH (10:30)
[2024-12-17 10:40] LABS: Absolute Neutrophil Ct (ANC) 6.31 x10^3/uL (1.78-5.38); BASOPHIL % 0.3 % (0.2-1.2); Basophil (Absolute #) 0.03 x10^3/uL (0.01-0.08); Eosinophil % 0.5 % (0.8-7.0); Eosinophil (Absolute #) 0.06 x10^3/uL (0.04-0.54); Hematocrit 47.3 % (40.1-51.0); Hemoglobin 16.5 g/dL (13.7-17.5); IMMATURE GRAN # 0.04 x10^3u/L (0.001-0.031); IMMATURE GRAN % 0.4 % (0.001-0.429); Mean Corpuscular Hemoglobin 31.7 pg (25.7-32.2); Mean Corpuscular Hgb Concent. 34.9 g/dL (32.3-36.5); Mean Platelet Volume 9.7 fL (9.4-12.4); Monocyte (Absolute #) 0.71 x10^3/uL (0.30-0.82); Monocytes % 6.3 % (5.3-12.2); Neutrophil % 55.5 % (34.0-67.9); Platelet Count 218 x10^3/uL (163-337); Red Cell Distribution Width 12.6 % (11.6-14.4); White Blood Count 11.4 x10^3/uL (4.23-9.07)
[2024-12-17 10:53] LABS: ANION GAP 15.7 MEQ/L (5-15); Calcium 9.4 mg/dL (8.4-10.2); Creatinine 1 0.97 mg/dL (0.66-1.25); EST GLOMERULAR FILTRATION RATE 89.9 ML/MIN; Potassium 3.9 mmol/L (3.5-5.1)
[2024-12-17] MEDS ORDERED: Versed 2 MG/2 ML Injection ONE (12:48)
[2024-12-17] MEDS ORDERED: Xylocaine-Mpf 2% 5 Ml Vial ONE (12:48)
[2024-12-17] MEDS ORDERED: propofoL IV ONE (12:48)
[2024-12-17] MEDS ORDERED: APRESOLINE 20 MG/ML INJ ONE (13:31)
[2024-12-17 13:58] VITALS: RESP 16
[2024-12-17 14:06] VITALS: BP 163/95; PULSE 64; TEMP 97.1; O2SAT 100
--- NOTE | 2024-12-18 13:06 | OP ---
SURGERY DATE/TIME: 12/17/2024 [id number] PREOPERATIVE DIAGNOSES: 1) History of right upper quadrant burning. 2) History of some reflux. 3) History of some ulcers in the past. 4) Need upper endoscopy to evaluate peptic ulcer disease, gastritis, esophagitis, or other etiology. POSTOPERATIVE DIAGNOSES: 1) Short segment 2 to 3 mm distal esophagitis at the gastroesophageal junction. 2) Minimal to mild gastric erythema. PROCEDURE: 1) Esophagogastroduodenoscopy. 2) Cold biopsy of small bowel to evaluate for histology. 3) Cold biopsy of antrum to evaluate for H pylori and for histology. 4) Cold biopsy distal esophagus to evaluate for distal esophagitis. SURGEON: Dante Lynn MD ANESTHESIA: MAC. ESTIMATED BLOOD LOSS: Minimal. INDICATIONS: Consent obtained. DESCRIPTION OF PROCEDURE AND FINDINGS: Patient was taken to the operating room. MAC anesthesia induced. After official time-out, no disagreement in planned procedure. Bite block positioned. Videogastroscope easily passed down the esophagus through the patent pylorus to the junction of third and fourth portions of duodenum. Minimal erythema in the duodenum. No evidence of any ulcers. Cold biopsy taken for histology. Good hemostasis noted. Back in the stomach, there was some minimal mild gastric erythema without any evidence of any ulcers or masses. Cold biopsy taken to evaluate for H pylori. On retroflex, the GE junction was snug against the scope. Scope was pulled back. GE junction was about 45 cm. There was 2 to 3 mm area of short segment distal esophagitis. Cold biopsy taken for further evaluation. Otherwise, remainder to the esophagus grossly unremarkable. Scope was withdrawn. Patient tolerated the procedure well. There were no immediate complications. We will see if there is any family or friend out in the waiting area to discuss findings with. If there was not initially, we will check again. We will see him back in the office next week.
== END 2024-12-17 14:08 | disposition home or self-care (01) ==
LOC: SDC 10:00
PROVIDERS: ATTEND Surgery
DX: K29.60 Other gastritis without bleeding (principal); Z87.19 Personal history of other diseases of the digestive system; K20.90 Esophagitis, unspecified without bleeding
CPT/HCPCS: 36415; 80048; 85025; 93005; J0360; J2250; J2704